=== PATIENT | female | born 1945 | race Caucasian/White ===

== ENCOUNTER 2017-06-27 08:47 | Day surgery (SDC) | payer MEDICARE, OTHER ==
--- NOTE | 2017-06-26 11:09 | HISTORY AND PHYSICAL E ---
History and Physical NAME: JENNIFER LAWRENCE : 1945 AGE: 72Y ADMITTED: 06/27/2017 ROOM: HISTORY OF PRESENT ILLNESS: This is a patient, 72, referred to us by [facility], colon screening. Patient does have lymph node, a large one, in her cervical area. SOCIAL HISTORY: . Does not smoke. Does not drink. She did have colonoscopy years ago. PAST SURGICAL HISTORY: She had a x3, hysterectomy, and fibroid tumor. REVIEW OF SYSTEMS: CARDIAC: Negative. ENDOCRINE: Negative. GASTROINTESTINAL: Constipation, colon screening. ONCOLOGY/HEMATOLOGY: Negative. NEUROPSYCHIATRIC: Anxiety, depression. FAMILY HISTORY: Her father had leukemia. He mom had goiter. PHYSICAL EXAMINATION: VITAL SIGNS: 72, blood pressure is 114/85, weight 130, temp is 98, pulse 70, respirations 18. HEAD, EYES, EARS, NOSE, THROAT: Normal. NECK: Showed some nodes enlargement. LUNGS: Clear. CARDIAC: Normal sinus rhythm. ABDOMEN: No masses. EXTREMITIES: Shows no edema. NEUROLOGIC EXAM: Negative. MEDICATIONS: She takes: 1. Primidone. 2. Tylenol. 3. Miralax. CONCLUSION: Colon screening. Patient does have lymph nodes in her cervical neck area. PLAN: She is to see her primary and request for ultrasound of the thyroid, the neck. Patient needs to have CBC. Awaiting colonoscopy report. Awaiting evaluation of adenopathy in her neck. DICTATING PHYSICIAN: DERREK DARNELL M.D. [id number] PHY#: [id number] ID: [id number] JOB#: [id number] ACCT: [id number] cc:DERREK DARNELL M.D. >
[~2017-06-27 08:47] MED LIST: EPINEPHRINE INJ 1 MG/10 ML DISP.SYRIN ONE; FLUMAZENIL INJ 0.5 MG/5 ML VIAL IV ONE; GLUCAGON,HUMAN RECOMB 1 MG INJ ONE; GLYCOPYRROLATE INJ 0.4 MG/2 ML VIAL ONE; LIDOCAINE 2% JELLY 30 ML TUBE ONE; NALOXONE HCL INJ/PF 0.4 MG/1 ML SDV ONE; ONDANSETRON HCL INJ/PF 4 MG/2 ML SDV ONE
[2017-06-27] MEDS: MIDAZOLAM 2 MG/2 ML INJ ONE ×2 (09:45→09:49)
[2017-06-27] MEDS: FENTANYL CITRATE INJ/PF 100 MCG/2 ML AMPUL ONE ×2 (09:47→09:55)
[2017-06-27 11:12] VITALS: BP 116/70
[2017-06-27 11:27] LABS: ABSOLUTE BASOPHILS # (AUTO) 0.1 10^3/uL (0.0-0.2); ABSOLUTE EOSINOPHILS # (AUTO) 0.2 10^3/uL (0.0-0.6); ABSOLUTE LYMPHOCYTES (AUTO) 1.6 10^3/uL (0.5-4.7); ABSOLUTE MONOCYTES (AUTO) 0.7 10^3/uL (0.1-1.4); ABSOLUTE NEUT (AUTO) 7.1 10^3/uL (1.7-8.2); BASOPHILS % (AUTO) 0.8 % (0-2); EOSINOPHILS % (AUTO) 1.9 % (0-6); HEMATOCRIT 40.7 % (36.0-47.0); HEMOGLOBIN 13.9 g/dL (12.0-15.5); MEAN CORPUSCULAR HEMOGLOBIN 32.7 pg (27.0-33.4); MEAN CORPUSCULAR HGB CONC 34.2 g/dL (32.0-36.0); MEAN CORPUSCULAR VOLUME 96 fl (80-97); MONOCYTES % (AUTO) 7.1 % (3-13); RED BLOOD COUNT 4.25 10^6/uL (3.72-5.28); RED CELL DISTRIBUTION WIDTH 13.8 % (11.5-14.0); SEGMENTED NEUTROPHILS % (AUTO) 73.2 % (42-78); WHITE BLOOD COUNT 9.7 10^3/uL (4.0-10.5)
[2017-06-27 11:47] LABS: ALANINE AMINOTRANSFERASE 24 U/L (9-52); ALBUMIN 4.6 g/dL (3.5-5.0); ALKALINE PHOSPHATASE 79 U/L (38-126); ANION GAP 12 (5-19); ASPARTATE AMINO TRANSFERASE 23 U/L (14-36); BILIRUBIN,DIRECT 0.2 mg/dL (0.0-0.4); BILIRUBIN,TOTAL 0.6 mg/dL (0.2-1.3); BLOOD UREA NITROGEN 9 mg/dL (7-20); CALCIUM 9.5 mg/dL (8.4-10.2); CARBON DIOXIDE 27 mmol/L (22-30); CHLORIDE 104 mmol/L (98-107); CREATININE RESULT 0.68 mg/dL (0.52-1.25); GLUCOSE 69 mg/dL (75-110); POTASSIUM 3.9 mmol/L (3.6-5.0); SODIUM 142.5 mmol/L (137-145); TOTAL PROTEIN 7.6 g/dL (6.3-8.2)
[2017-06-27 12:02] LABS: ERYTHROCYTE SEDIMENTATION RATE 20 mm/hr (0-30)
--- NOTE | 2017-06-27 15:05 | OPERATIVE REPORT E ---
Operative Report NAME: JENNIFER LAWRENCE : 1945 AGE: 72Y DATE OF SURGERY: 06/27/2017 ROOM: PREOPERATIVE DIAGNOSIS: Colon screening. POSTOPERATIVE DIAGNOSES: 1. Sigmoid diverticulosis. 2. Patient did have external hemorrhoids. PROCEDURE: Colonoscopy. SURGEON: DERREK DARNELL M.D. ANESTHESIA: Versed 3 mg and Fentanyl 100 mcg. TISSUE REMOVED OR ALTERED: None. DESCRIPTION OF PROCEDURE: Rectal exam external hemorrhoids. Sigmoid diverticulosis. Descending colon diverticulosis. Transverse colon normal. Ascending colon normal. Cecum normal. The scope withdrawn cecum, ascending, transverse, descending, sigmoid all the way to the rectum. CONCLUSIONS: 1. External hemorrhoids. 2. Sigmoid and descending colon diverticulosis. 3. Colonoscopy showing no polyps, no malignancy. PLAN: Recommend follow-up colonoscopy in 10 years to be done in the OR with Anesthesia standby. Difficult to sedate. DICTATING PHYSICIAN: DERREK DARNELL M.D. [id number] PHY#: [id number] ID: [id number] JOB#: [id number] ACCT: [id number] cc:DERREK DARNELL M.D. >
--- NOTE | 2017-06-28 15:29 | DISCHARGE SUMMARY E ---
Discharge Summary NAME: JENNIFER LAWRENCE : 1945 AGE: 72Y ADMITTED: 06/27/2017 DISCHARGED: 06/27/2017 06/27/2017 PROCEDURE: Colonoscopy. FINAL DIAGNOSES: 1. External hemorrhoids. 2. Sigmoid and descending colon diverticulosis. HISTORY: This 72-year-old female underwent colon screening showing no polyps, no malignancy. The patient was complaining of abdominal pain. She did have x3 and hysterectomy. PLAN: We need to do abdominal ultrasound to rule out ventral or umbilical hernia. We will obtain baseline CBC and chem profile. DICTATING PHYSICIAN: DERREK DARNELL M.D. [id number] PHY#: [id number] ID: [id number] JOB#: [id number] ACCT: [id number] cc:DERREK DARNELL M.D. >
== END 2017-06-27 11:25 | disposition home or self-care (01) ==
LOC: END 08:47
PROVIDERS: ATTEND Specialist
PROC: 0DJD8ZZ Inspection of Lower Intestinal Tract, Via Natural or Artificial Opening Endoscopic (ICD-10-PCS; principal; 2017-06-27 09:00)
DX: Z12.11 Encounter for screening for malignant neoplasm of colon (principal); K64.4 Residual hemorrhoidal skin tags; K57.30 Diverticulosis of large intestine without perforation or abscess without bleeding; F41.9 Anxiety disorder, unspecified; F32.9 Major depressive disorder, single episode, unspecified; Z79.899 Other long term (current) drug therapy
CPT/HCPCS: 36415; 85025; 85652; 80053; G0121; J2250; J0171; J3010; J1610; J2405; 45378; J2310; J3490

== ENCOUNTER 2017-11-11 11:18 | Emergency (ER) | payer MEDICARE, OTHER ==
--- NOTE | 2017-11-11 11:45 | ER Document Report ---
ED Medical Screen (RME) - General Chief Complaint: General Weakness Stated Complaint: NAUSEA, WEAKNESS Time Seen by Provider: 11/11/17 11:34 Notes: 72-year-old female patient comes in complaining of feeling shaky, weak, nausea, disoriented started last night. She also reports that both her hands feel numb, weak, and like "dough". She had been taking Xanax for the past 2 years taking 0.25 mg in the morning and 0.5 mg in the evening. It had been causing itching the entire time. On 10/30/2017 her PCP stopped the Xanax and change her to Zoloft 100 mg. She has only been taking about a 25 mg dose of the Zoloft. On 11/08/2017 she went to an urgent care for an ear infection and was prescribed amoxicillin and prednisone 40 mg a day. Her symptoms she is experiencing today are similar to what she experienced many many years ago when she took prednisone. I informed the patient I suspect that it is a combination of her benzodiazepine withdrawal and the side effect of the prednisone causing her symptoms, but we will check lab work and have her more thoroughly evaluated. I have greeted and performed a rapid initial assessment of this patient. A comprehensive ED assessment and evaluation of the patient, analysis of test results and completion of the medical decision making process will be conducted by additional ED providers. TRAVEL OUTSIDE OF THE [place] IN LAST 30 DAYS: No - Related Data Allergies/Adverse Reactions: ampicillin Allergy (Verified 11/11/17 11:20) Edema Sulfa (Sulfonamide Antibiotics) Allergy (Verified 11/11/17 11:20) Past Medical History - Past Medical History Cardiac Medical History: Reports: Hx Hypercholesterolemia Denies: Hx Coronary Artery Disease, Hx Heart Attack, Hx Hypertension Pulmonary Medical History: Reports: Hx Asthma Denies: Hx Bronchitis, Hx COPD, Hx Pneumonia Neurological Medical History: Denies: Hx Cerebrovascular Accident, Hx Seizures Musculoskeltal Medical History: Reports Hx Arthritis Past Surgical History: Reports: Hx Section - 3, Hx Gynecologic Surgery - fibroid tumors removed, Hx Hysterectomy - Immunizations Hx Diphtheria, Pertussis, Tetanus Vaccination: No Physical Exam - Vital signs Vitals: Temp Pulse Resp BP Pulse Ox 98.8 F 76 20 142/79 H 99 11/11/17 11:27 11/11/17 11:27 11/11/17 11:27 11/11/17 11:27 11/11/17 11:27 Course - Vital Signs Vital signs: Temp Pulse Resp BP Pulse Ox 98.8 F 76 20 142/79 H 99 11/11/17 11:27 11/11/17 11:27 11/11/17 11:27 11/11/17 11:27 11/11/17 11:27
[2017-11-11 12:09] LABS: ABSOLUTE BASOPHILS # (AUTO) 0.1 10^3/uL (0.0-0.2); ABSOLUTE LYMPHOCYTES (AUTO) 1.5 10^3/uL (0.5-4.7); ABSOLUTE MONOCYTES (AUTO) 0.8 10^3/uL (0.1-1.4); BASOPHILS % (AUTO) 0.5 % (0-2); EOSINOPHILS % (AUTO) 0.1 % (0-6); HEMATOCRIT 42.9 % (36.0-47.0); HEMOGLOBIN 14.8 g/dL (12.0-15.5); HGB HCT DIFFERENCE 1.5; LYMPHOCYTES % (AUTO) 14.9 % (13-45); MEAN CORPUSCULAR HEMOGLOBIN 31.6 pg (27.0-33.4); MEAN CORPUSCULAR HGB CONC 34.5 g/dL (32.0-36.0); MEAN CORPUSCULAR VOLUME 92 fl (80-97); MONOCYTES % (AUTO) 7.5 % (3-13); RED BLOOD COUNT 4.69 10^6/uL (3.72-5.28); RED CELL DISTRIBUTION WIDTH 13.3 % (11.5-14.0); WHITE BLOOD COUNT 10.3 10^3/uL (4.0-10.5)
[2017-11-11 12:12] LABS: APPEARANCE,URINE SLIGHTLY-CLOUDY; BILIRUBIN,URINE NEGATIVE (NEGATIVE); GLUCOSE, URINE NEGATIVE (NEGATIVE); KETONES,URINE TRACE mg/dL (NEGATIVE); LEUKOCYTE ESTERASE,URINE NEGATIVE (NEGATIVE); NITRITE,URINE NEGATIVE (NEGATIVE); PROTEIN,URINE NEGATIVE (NEGATIVE); URINE SPECIFIC GRAVITY 1.016
[2017-11-11 12:27] LABS: ALANINE AMINOTRANSFERASE 31 U/L (9-52); ALBUMIN 4.9 g/dL (3.5-5.0); ALKALINE PHOSPHATASE 71 U/L (38-126); ANION GAP 15 (5-19); ASPARTATE AMINO TRANSFERASE 20 U/L (14-36); BILIRUBIN,DIRECT 0.3 mg/dL (0.0-0.4); BILIRUBIN,TOTAL 0.8 mg/dL (0.2-1.3); BLOOD UREA NITROGEN 9 mg/dL (7-20); CALCIUM 10.2 mg/dL (8.4-10.2); CARBON DIOXIDE 25 mmol/L (22-30); CHLORIDE 102 mmol/L (98-107); CREATININE RESULT 0.75 mg/dL (0.52-1.25); GLUCOSE 109 mg/dL (75-110); POTASSIUM 3.5 mmol/L (3.6-5.0); SODIUM 141.9 mmol/L (137-145); TOTAL PROTEIN 7.5 g/dL (6.3-8.2)
[2017-11-11] MEDS ORDERED: NORMAL SALINE 500 ML IV PRN (12:36)
--- NOTE | 2017-11-11 12:36 | ER Document Report ---
ED General - General Chief Complaint: General Weakness Stated Complaint: NAUSEA, WEAKNESS Time Seen by Provider: 11/11/17 11:34 Mode of Arrival: Ambulatory Information source: Patient Notes: 72-year-old female with a history of anxiety who recently started amoxicillin and prednisone for a sinus infection. The patient presents feeling very jittery and shaky and disoriented and nauseous. She states she has had a similar reaction although worse to prednisone many years ago and had forgotten until just today. She had been on the prednisone and the amoxicillin for 2 days. She states that her ears of started to improve. The patient also reports that 2 weeks ago she hit the side of her head after a fall and has had a lot of headaches and tenderness to the right scalp. The patient's [id number] states that they have been concerned because she did not seem to be acting right on a few occasions. There is no nausea, vomiting. TRAVEL OUTSIDE OF THE [place] IN LAST 30 DAYS: No - HPI Onset: Last week Onset/Duration: Gradual Quality of pain: No pain Associated symptoms: denies: Chills, Fever, Shortness of breath Exacerbated by: Denies Relieved by: Denies Similar symptoms previously: No Recently seen / treated by doctor: No - Related Data Allergies/Adverse Reactions: ampicillin Allergy (Verified 11/11/17 11:20) Edema Sulfa (Sulfonamide Antibiotics) Allergy (Verified 11/11/17 11:20) prednisone Adverse Reaction (Verified 11/11/17 12:37) Home Medications: Current Home Medications Sertraline HCl [Zoloft 50 mg Tablet] 100 mg PO DAILY 11/11/17 [History] Past Medical History - General Information source: Patient - Social History Smoking Status: Never Smoker Cigarette use (# per day): No Chew tobacco use (# tins/day): No Frequency of alcohol use: None Drug Abuse: None Lives with: Family Family History: Reviewed & Not Pertinent Patient has suicidal ideation: No Patient has homicidal ideation: No - Past Medical History Cardiac Medical History: Reports: Hx Hypercholesterolemia Denies: Hx Coronary Artery Disease, Hx Heart Attack, Hx Hypertension Pulmonary Medical History: Reports: Hx Asthma Denies: Hx Bronchitis, Hx COPD, Hx Pneumonia Neurological Medical History: Denies: Hx Cerebrovascular Accident, Hx Seizures Renal/ Medical History: Denies: Hx Peritoneal Dialysis Musculoskeltal Medical History: Reports Hx Arthritis Past Surgical History: Reports: Hx Section - 3, Hx Gynecologic Surgery - fibroid tumors removed, Hx Hysterectomy - Immunizations Hx Diphtheria, Pertussis, Tetanus Vaccination: No Hx Pneumococcal Vaccination: 11/26/15 Review of Systems - Review of Systems Constitutional: denies: Chills, Fever EENT: See HPI Cardiovascular: No symptoms reported Respiratory: No symptoms reported Gastrointestinal: No symptoms reported Genitourinary: No symptoms reported Female Genitourinary: No symptoms reported Musculoskeletal: No symptoms reported Skin: No symptoms reported Hematologic/Lymphatic: No symptoms reported Neurological/Psychological: See HPI Physical Exam - Vital signs Vitals: Temp Pulse Resp BP Pulse Ox 98.8 F 76 20 142/79 H 99 11/11/17 11:27 11/11/17 11:27 11/11/17 11:27 11/11/17 11:27 11/11/17 11:27 Notes: Physical exam: GENERAL: 72-year-old female, alert and oriented 3, no acute distress HEAD: Atraumatic, normocephalic. EYES: Pupils equal round and reactive to light, extraocular movements intact, sclera anicteric, conjunctiva are normal. ENT: TMs normal, nares patent, oropharynx clear without exudates. Moist mucous membranes. NECK: Normal range of motion, supple without obvious mass or JVD. LUNGS: Breath sounds clear to auscultation bilaterally and equal. No wheezes rales or rhonchi. HEART: Regular rate and rhythm without murmurs, rubs or gallops. ABDOMEN: Soft, normoactive bowel sounds. No tenderness to palpation. No guarding, no rebound. No masses appreciated. EXTREMITIES: Normal range of motion, no pitting or edema. No clubbing or cyanosis. NEUROLOGICAL: Cranial nerves II through XII grossly intact. Normal speech, moving all extremities. PSYCH: Normal mood, normal affect. SKIN: Warm, Dry, normal turgor, no rashes or lesions noted. Course - Vital Signs Vital signs: Temp Pulse Resp BP Pulse Ox 98.6 F 80 18 136/86 H 99 11/11/17 18:11 11/11/17 18:11 11/11/17 18:11 11/11/17 18:11 11/11/17 18:11 - Laboratory Result Diagrams: 11/11/17 11:48 11/11/17 11:48 Laboratory results interpreted by me: 12/17/17 12/17/17 12/17/17 11:48 11:48 11:48 Plt Count 467 H Potassium 3.5 L Urine Ketones TRACE H Urine Urobilinogen 4.0 H - Diagnostic Test Radiology reviewed: Image reviewed, Reports reviewed - CT of the head shows old small vessel disease on the left. Discharge - Discharge Clinical Impression: ADVERSE REACTION MEDICINE, Right scalp contusion Condition: Stable Disposition: HOME, SELF-CARE Additional Instructions: As we discussed, your labs look good. The CT of the head showed no skull fractures or brain contusion on the right side where you pain is been. The CT is a sensitive test and it did show some small vessel ischemic disease which is a common finding. This does not appear to be an acute (recent) finding. I would continue with the aspirin daily. I will follow-up with your primary care doctor and bring a copy of the CT with you. Recommendations: Stop the prednisone as discussed. Continue with the amoxicillin. Return to the emergency room for any worsening symptoms: It may take a full day or 2 before the prednisone is fully out of your system. You can take Zofran for nausea Prescriptions: Ondansetron HCl [Zofran 4 mg Tablet] 1 - 2 tab PO Q4H PRN #10 tablet PRN Reason: Referrals: NEIL DRISCOLL MD [Primary Care Provider] - Follow up as needed
[2017-11-11] MEDS ORDERED: ONDANSETRON HCL INJ/PF 4 MG/2 ML SDV IV ONE (13:11)
--- NOTE | 2017-11-11 15:45 | RADIOLOGY REPORT (SQ) ---
EXAM DESCRIPTION: CT HEAD WITHOUT COMPLETED DATE/TIME: 11/11/2017 3:14 pm REASON FOR STUDY: right head pain s/p trauma COMPARISON: None. TECHNIQUE: Axial images acquired through the brain without intravenous contrast. Images reviewed wi th bone, brain and subdural windows. Images stored on PACS. All CT scanners at this facility use dose modulation, iterative reconstruction, and/or weight based d osing when appropriate to reduce radiation dose to as low as reasonably achievable (ALARA). [facility]: Dose Right [facility]: CareDose [facility]: Dose Right [facility]: Teradose 4D [facility]: [employer] RADIATION DOSE: CT Rad equipment meets quality standard of care and radiation dose reduction techniq ues were employed. CTDIvol: 64.6 mGy. DLP: 1163 mGy-cm. mGy. LIMITATIONS: None. FINDINGS: VENTRICLES: Normal size and contour. CEREBRUM: Spotty low attenuation in the left frontal deep periventricular white matter, likely chroni c small vessel disease. No CT evidence of acute intracranial hemorrhage, acute large territory ischem ic change, mass effect, or midline shift. CEREBELLUM: No masses. No hemorrhage. No alteration of density. No evidence for acute infarction. EXTRAAXIAL SPACES: No fluid collections. No masses. ORBITS AND GLOBE: No intra- or extraconal masses. Normal contour of globe without masses. CALVARIUM: No fracture. PARANASAL SINUSES: No fluid or mucosal thickening. SOFT TISSUES: No mass or hematoma. OTHER: No other significant finding. IMPRESSION: Left frontal small vessel ischemic change. No acute intracranial changes. No skull fracture. EVIDENCE OF ACUTE STROKE: NO. COMMENT: Quality ID # [id number]: Final reports with documentation of one or more dose reduction techniques (e.g., Automated exposure control, adjustment of the mA and/or kV according to patient size, use of iterative reconstruction technique) TECHNICAL DOCUMENTATION: JOB ID: [id number] [employer]- All Rights Reserved
[2017-11-11] MEDS ORDERED: ONDANSETRON ODT 4 MG TAB (6 TAB/DSPK) PO PRN (17:20)
[2017-11-11 18:12] VITALS: BP 136/86
== END 2017-11-11 18:00 | disposition home or self-care (01) ==
LOC: ER 11:18
DX: S00.03XA Contusion of scalp, initial encounter (principal); R53.1 Weakness; R11.0 Nausea; F41.9 Anxiety disorder, unspecified; Z79.899 Other long term (current) drug therapy; W19.XXXA Unspecified fall, initial encounter
CPT/HCPCS: 99285; 96374; 36415; 85025; 80053; 81001; 70450; J2405; J7040; A9270

== ENCOUNTER 2018-03-24 22:41 | Emergency (ER) | payer MEDICARE, OTHER ==
[2018-03-25 01:15] LABS: ANION GAP 14 (5-19); BLOOD UREA NITROGEN 14 mg/dL (7-20); C-REACTIVE PROTEIN 11.9 mg/L (<10.0); CALCIUM 9.6 mg/dL (8.4-10.2); CARBON DIOXIDE 25 mmol/L (22-30); CHLORIDE 107 mmol/L (98-107); GLUCOSE 104 mg/dL (75-110); POTASSIUM 4.3 mmol/L (3.6-5.0); SODIUM 145.8 mmol/L (137-145)
--- NOTE | 2018-03-25 01:20 | RADIOLOGY REPORT (SQ) ---
EXAM DESCRIPTION: CT HEAD WITHOUT CLINICAL HISTORY: 72 years Female, headache COMPARISON: None. TECHNIQUE: No contrast. Coronal and sagittal reformat. This exam was performed according to our departmental dose-optimization program, which includes automated exposure control, adjustment of the mA and/or kV according to patient size and/or use of iterative reconstruction technique. FINDINGS: No hemorrhage or infarct. No mass, mass effect, or midline shift. Mild white matter microangiopathy. Atherosclerosis. Brain and extra-axial structures appear otherwise intact. IMPRESSION: No acute findings.
--- NOTE | 2018-03-25 01:36 | ER Document Report ---
ED General - General Chief Complaint: Headache Stated Complaint: HEADACHE Time Seen by Provider: 03/24/18 23:57 Notes: Patient is a 72-year-old female with medical history as recorded who presents with 6 months of intermittent global and migratory headaches. She comes at the behest of her family today as a note that intermittently her headaches are so severe that she lays on the couch and cries. She has discussed these headaches with her primary doctor but he "blew them off" and has not referred her to neurology or provide any additional management of these headaches. Nothing seems to trigger the headaches and they do often resolve spontaneously. Patient states that they seem to originate from several areas of veins on her right forehead and left scalp. She denies any associated visual loss, weakness , numbness, vomiting or syncope. No head trauma. She describes the pain as a severe, stabbing, throbbing pain when it is present. Symptoms are overall unchanged tonight but states that she came as her family was tired of seeing her in some much pain. Family also notes that for the past several years she has had a swollen lymph node of her left neck that seems to be getting bigger and they are concerned about this. TRAVEL OUTSIDE OF THE [place] IN LAST 30 DAYS: No - Related Data Allergies/Adverse Reactions: ampicillin Allergy (Verified 11/11/17 11:20) Edema Sulfa (Sulfonamide Antibiotics) Allergy (Verified 11/11/17 11:20) prednisone Adverse Reaction (Verified 11/11/17 12:37) Past Medical History - General Information source: Patient - Social History Smoking Status: Never Smoker Frequency of alcohol use: None Drug Abuse: None Lives with: Family Family History: Reviewed & Not Pertinent - Past Medical History Cardiac Medical History: Reports: Hx Hypercholesterolemia Denies: Hx Coronary Artery Disease, Hx Heart Attack, Hx Hypertension Pulmonary Medical History: Reports: Hx Asthma Denies: Hx Bronchitis, Hx COPD, Hx Pneumonia Neurological Medical History: Denies: Hx Cerebrovascular Accident, Hx Seizures Renal/ Medical History: Denies: Hx Peritoneal Dialysis Musculoskeltal Medical History: Reports Hx Arthritis Past Surgical History: Reports: Hx Section - 3, Hx Gynecologic Surgery - fibroid tumors removed, Hx Hysterectomy - Immunizations Hx Diphtheria, Pertussis, Tetanus Vaccination: No Hx Pneumococcal Vaccination: 11/26/15 Review of Systems - Review of Systems Notes: Constitutional: Negative for fever. HENT: Negative for sore throat. Eyes: Negative for visual changes. Cardiovascular: Negative for chest pain. Respiratory: Negative for shortness of breath. Gastrointestinal: Negative for abdominal pain, vomiting or diarrhea. Genitourinary: Negative for dysuria. Musculoskeletal: Negative for back pain. Skin: Negative for rash. Neurological: Positive for headaches 10 point ROS negative except as marked above and in HPI. Physical Exam - Vital signs Interpretation: Normal Notes: PHYSICAL EXAMINATION: GENERAL: Well-appearing, well-nourished and in no acute distress. HEAD: Atraumatic, normocephalic. EYES: Pupils equal round and reactive to light, extraocular movements intact, sclera anicteric, conjunctiva are normal. ENT: nares patent, oropharynx clear without exudates. Moist mucous membranes. NECK: Normal range of motion, there is a large, firm, nonmobile, nontender left- sided anterior cervical lymph node LUNGS: Breath sounds clear to auscultation bilaterally and equal. No wheezes rales or rhonchi. HEART: Regular rate and rhythm without murmurs ABDOMEN: Soft, nontender, normoactive bowel sounds. No guarding, no rebound. No masses appreciated. EXTREMITIES: Normal range of motion, no pitting or edema. No cyanosis. NEUROLOGICAL: Face symmetric. Tongue protrudes midline. Extraocular motions intact. Pupils are 2 mm and equally reactive. Normal speech, normal gait. 5 out of 5 strength in both the distal and proximal upper and lower extremities bilaterally. Sensation is grossly intact throughout. Finger to nose testing normal. Pronator drift normal. PSYCH: Normal mood, normal affect. SKIN: Warm, Dry, normal turgor, multiple superficial thrombosed veins along the right forehead and left temporal scalp Course - Re-evaluation Re-evalutation: 03/25/18 01:29 Presentation of a chronic, recurrent diffuse headache for the past 6 months but is overall unchanged today. Headache was not maximal in onset, patient has no focal neurologic deficits, no nuchal rigidity, vital signs within normal limits , no papilledema, and patient is overall well in appearance. Based on clinical history and examination I do not suspect an acute subarachnoid hemorrhage, dural venous sinus thrombosis, acute meningitis, or intercranial mass. Patient has multiple superficial thrombosed veins over her right forehead and left temporal scalp which may be triggering her headaches. Low clinical suspicion for temporal arteritis given clinical history and ESR and CRP are normal. CT the head is unremarkable which was obtained given her advanced age. Patient also has a large left anterior cervical lymph node that is large, firm and nonmobile. This is apparently been present for the past several years and has never been biopsied. I have strongly encouraged the patient to please discuss with her primary care doctor about having this area biopsied. We also discussed considering neurology referral for her recurrent headaches. I have encouraged her to place hot compresses on the areas of superficial thrombosed veins and continue take a full dose of aspirin daily to try to open these areas. At this time will discharge with return precautions and follow-up recommendations. Verbal discharge instructions given a the bedside and opportunity for questions given. Medication warnings reviewed. Patient is in agreement with this plan and has verbalized understanding of return precautions and the need for primary care follow-up in the next 24-72 hours. - Laboratory Result Diagrams: 03/25/18 00:30 Laboratory results interpreted by me: 03/25/18 00:30 Sodium 145.8 H C-Reactive Protein 11.9 H - Diagnostic Test Radiology reviewed: Image reviewed, Reports reviewed Radiology results interpreted by me: 03/25/18 01:31 CT head: No acute intracranial bleed or mass Discharge - Discharge Clinical Impression: Superficial vein thrombosis, Recurrent headache, Enlarged lymph node in neck Condition: Good Disposition: HOME, SELF-CARE Additional Instructions: Please discuss with your primary care doctor about having the lymph node in your neck biopsied. You have multiple veins in your face and scalp that are clotted off and may be the cause of your recurrent headaches. Your labs and CT scan are reassuring today. You should consider following up with neurology given your recurrent headaches. Return if you have persistent vomiting, weakness, numbness, fever, confusion, or any other symptoms that are worrisome to you.
[2018-03-25 01:59] VITALS: BP 128/70
== END 2018-03-25 01:55 | disposition home or self-care (01) ==
LOC: ER 22:41
DX: I82.890 Acute embolism and thrombosis of other specified veins (principal); R59.0 Localized enlarged lymph nodes; R51 Headache; J45.909 Unspecified asthma, uncomplicated
CPT/HCPCS: 36415; 70450; 80048; 85652; 86140; 99284

== ENCOUNTER → 2018-04-02 | Outpatient (CLI) | payer MEDICARE, OTHER ==
--- NOTE | 2018-04-02 13:42 | RADIOLOGY REPORT (SQ) ---
EXAM DESCRIPTION: CT SOFT TISSUE NECK WITHOUT COMPLETED DATE/TIME: 04/02/2018 1:15 pm REASON FOR STUDY: R22.1 LOCALIZED SWELLING, MASS AND LUMP, NECK R22.1 LOCALIZED SWELLING, MASS AND LUMP, NECK COMPARISON: None. TECHNIQUE: Noncontrast scanning from skull base through lung apices with review of bone, soft tissue and lung windows. Reconstructed coronal and sagittal MPR images reviewed. All images stored on PAC S. All CT scanners at this facility use dose modulation, iterative reconstruction, and/or weight based d osing when appropriate to reduce radiation dose to as low as reasonably achievable (ALARA). [facility]: Dose Right [facility]: CareDose [facility]: Dose Right [facility]: Teradose 4D [facility]: [facility] RADIATION DOSE: mGy. LIMITATIONS: None. FINDINGS: SKULL BASE: Intact. MAJOR SALIVARY GLANDS: No solid or cystic masses. No inflammatory changes. LYMPHADENOPATHY: No adenopathy. MUCOSAL MASSES OR ASYMMETRY: No mucosal masses or asymmetry. LARYNX/CORDS: No abnormal findings. LUNG APICES: Clear. BONES: Intact. THYROID: Normal size. No masses. PARANASAL SINUSES: Clear. OTHER: No other significant finding. IMPRESSION: NO SIGNIFICANT FINDING IN THE SOFT TISSUES OF THE NECK. TECHNICAL DOCUMENTATION: JOB ID: [id number] Quality ID # [id number]: Final reports with documentation of one or more dose reduction techniques (e.g., Au tomated exposure control, adjustment of the mA and/or kV according to patient size, use of iterative reconstruction technique) 2010 [employer] All Rights Reserved Reading location - IP/workstation name: [email or web address] [email or web address] [id number] BEDS AT THE [facility]
== END ==
LOC: RAD 13:05
PROVIDERS: ATTEND Internal Medicine
DX: R22.1 Localized swelling, mass and lump, neck (principal)
CPT/HCPCS: 70490

== ENCOUNTER 2018-05-28 12:52 | Emergency (ER) | payer OTHER, MEDICARE ==
[2018-05-28] MEDS ORDERED: FENTANYL CITRATE INJ/PF 100 MCG/2 ML AMPUL IV ONE (13:14)
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
[2018-05-28 14:00] LABS: ABSOLUTE BASOPHILS # (AUTO) 0.1 10^3/uL (0.0-0.2); ABSOLUTE EOSINOPHILS # (AUTO) 0.2 10^3/uL (0.0-0.6); ABSOLUTE LYMPHOCYTES (AUTO) 2.4 10^3/uL (0.5-4.7); ABSOLUTE MONOCYTES (AUTO) 0.7 10^3/uL (0.1-1.4); ABSOLUTE NEUT (AUTO) 5.7 10^3/uL (1.7-8.2); BASOPHILS % (AUTO) 1.3 % (0-2); EOSINOPHILS % (AUTO) 1.9 % (0-6); HEMATOCRIT 38.9 % (36.0-47.0); HEMOGLOBIN 13.2 g/dL (12.0-15.5); LYMPHOCYTES % (AUTO) 26.2 % (13-45); MEAN CORPUSCULAR HEMOGLOBIN 31.5 pg (27.0-33.4); MEAN CORPUSCULAR VOLUME 93 fl (80-97); MONOCYTES % (AUTO) 7.4 % (3-13); PLATELET COUNT 492 10^3/uL (150-450); RED CELL DISTRIBUTION WIDTH 13.6 % (11.5-14.0); SEGMENTED NEUTROPHILS % (AUTO) 63.2 % (42-78); TOTAL CELLS COUNTED % (AUTO) 100 %
[2018-05-28 14:18] LABS: ALANINE AMINOTRANSFERASE 23 U/L (9-52); ALBUMIN 4.1 g/dL (3.5-5.0); ALKALINE PHOSPHATASE 114 U/L (38-126); ANION GAP 10 (5-19); ASPARTATE AMINO TRANSFERASE 40 U/L (14-36); BILIRUBIN,DIRECT 0.3 mg/dL (0.0-0.4); BILIRUBIN,TOTAL 0.5 mg/dL (0.2-1.3); BLOOD UREA NITROGEN 8 mg/dL (7-20); CALCIUM 9.5 mg/dL (8.4-10.2); CARBON DIOXIDE 28 mmol/L (22-30); CHLORIDE 107 mmol/L (98-107); GLUCOSE 86 mg/dL (75-110); POTASSIUM 3.8 mmol/L (3.6-5.0); SODIUM 145.1 mmol/L (137-145); TOTAL PROTEIN 7.1 g/dL (6.3-8.2)
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
[2018-05-28 16:21] VITALS: BP 136/72
--- NOTE | 2018-05-28 18:54 | EKG REPORT ---
SEVERITY:- NORMAL ECG - SINUS RHYTHM : Confirmed by: Fidel Hathc MD 28-May-2018 18:54:11
== END 2018-05-28 16:21 | disposition home or self-care (01) ==
LOC: ER 12:52
DX: S16.1XXA Strain of muscle, fascia and tendon at neck level, initial encounter (principal); R20.0 Anesthesia of skin; R10.33 Periumbilical pain; M25.562 Pain in left knee; M25.561 Pain in right knee; V89.2XXA Person injured in unspecified motor-vehicle accident, traffic, initial encounter; E78.00 Pure hypercholesterolemia, unspecified; Z88.2 Allergy status to sulfonamides; Z88.0 Allergy status to penicillin; Z90.710 Acquired absence of both cervix and uterus
CPT/HCPCS: 93005; 99284; 36415; 85025; 80053; 73564 ×2; 73030; 71260; 72125; 74177; 93010; J3010

== ENCOUNTER → 2018-08-26 | Outpatient (CLI) | payer MEDICARE, OTHER ==
--- NOTE | 2018-08-27 12:39 | RADIOLOGY REPORT (SQ) ---
EXAM DESCRIPTION: MRI CERVICAL SPINE WITHOUT COMPLETED DATE/TIME: 08/26/2018 6:53 pm REASON FOR STUDY: M54.12 RADICULOPATHY, CERVICAL REGION M54.12 RADICULOPATHY, CERVICAL REGION COMPARISON: CT cervical spine 05/28/2018 TECHNIQUE: Sagittal and Axial imaging includes T1, T2, STIR and gradient echo sequences. LIMITATIONS: None. FINDINGS: ALIGNMENT: Normal. VERTEBRAE: Intact. BONE MARROW: Normal. No marrow replacement or reactive changes. DISCS: Diffuse decreased T2 weighted intervertebral disc signal. HARDWARE: None in the spine. CORD AND BASE OF BRAIN: Normal in size and signal intensity. SOFT TISSUES: No soft tissue masses. C1-C2: No significant spinal stenosis. C2-C3: Very mild right foraminal narrowing at C2-3 from asymmetric right-sided facet arthropathy. No central or left foraminal narrowing. C3-C4: Minimal posterior disc bulging. Moderate bilateral foraminal narrowing from facet and uncover tebral hypertrophy. No central stenosis. C4-C5: No significant spinal stenosis or exit foraminal stenosis. Moderate right facet arthropathy a t C4-5. C5-C6: Mild posterior disc bulging without central or foraminal stenosis. Bilateral facet arthropath y left greater than right C6-C7: Minimal posterior disc bulging. No central or foraminal stenosis. C7-T1: No significant spinal stenosis or exit foraminal stenosis. UPPER THORACIC: Incompletely imaged. No significant spinal stenosis or exit foraminal stenosis. OTHER: No other significant finding. IMPRESSION: Cervical facet arthropathy. TECHNICAL DOCUMENTATION: JOB ID: [id number] [employer]- All Rights Reserved Reading location - IP/workstation name: [email or web address]
== END ==
LOC: RAD 18:43
PROVIDERS: ATTEND Internal Medicine
DX: M54.12 Radiculopathy, cervical region (principal)
CPT/HCPCS: 72141

== ENCOUNTER → 2019-01-09 | Outpatient (CLI) | payer MEDICARE, OTHER ==
--- NOTE | 2019-01-09 14:16 | WOMENS IMAGING REPORT ---
EXAM DESCRIPTION: 3D SCREENING MAMMO BILAT COMPLETED DATE/TIME: 01/09/2019 11:43 am REASON FOR STUDY: ROUTINE SCREENING MAMMOGRAM Z12.31 Z12.31 ENCNTR SCREEN MAMMOGRAM FOR MALIGNANT N EOPLASM OF PETROS COMPARISON: Multiple since 2012 TECHNIQUE: Standard craniocaudal and mediolateral oblique views of each breast recorded using digita l acquisition and breast tomosynthesis. LIMITATIONS: None. FINDINGS: Findings present which are benign by mammographic criteria. No suspicious masses, calcifi cations or architectural distortion. Pertinent benign findings: Benign bilateral breast parenchymal and vascular calcifications. Right br east upper inner quadrant intramammary lymph node. Read with the assistance of CAD. .[facility] - R2 Cenova Version 1.3 .[facility] - R2 Cenova Version 2.1 .[facility] - R2 Cenova Version 2.4 .[facility] [place] - R2 Cenova Version 2.4 .[facility] - R2 Tugboat Engineer Version 9.2 Benign mammographic findings may include one or more of the following: Smooth masses, popcorn/rim/co arse calcifications, asymmetries, post-procedure changes, and lesions with long-standing stability. IMPRESSION: BENIGN MAMMOGRAPHIC FINDINGS. BIRADS 2 BREAST DENSITY: c. The breasts are heterogeneously dense, which may obscure small masses. BIRAD: 2 BENIGN FINDING(S) RECOMMENDATION: RECOMMENDATION: ROUTINE SCREENING COMMENT: The patient has been notified of the results by letter per SA requirements. Additional no tification policies are in place for contacting patient with suspicious or incomplete findings. Quality ID #225: The [employer] recommends an annual screening mammogram for women aged 40 years or over. This facility utilizes a reminder system to ensure that all patients receive reminder letters, and/or direct phone calls for appointments. This includes reminders for routine scr eening mammograms, diagnostic mammograms, or other Breast Imaging Interventions when appropriate. Th is patient will be placed in the appropriate reminder system. The [employer] (ACR) has developed recommendations for screening MRI of the breast s in certain patient populations, to be used in conjunction with mammography. Breast MRI surveillanc e may be appropriate for women with more than 20% lifetime risk of developing breast cancer as deter mined by genetic testing, significant family history of the disease, or history of mantle radiation f or Hodgkins Disease. ACR Practice Guidelines 2008. DBT Technology DBT is a type of tomographic mammography. With conventional mammography, overlapping breast tissue ma y make lesions difficult to detect, even with good compression. DBT uses an x-ray tube that rotates a round the breast, taking images at different angles. These images are then combined to create thin sl ices of the breast that the radiologist can view as a 3D reconstruction. The Hologic unit can perform full-field digital mammograms (2D imaging); or DBT (3D imaging); or both, in a combination mode that quickly performs both the mammogram and the tomosynthesis scan while the breast is still compressed. PQRS 6045F: Fluoroscopic imaging is not utilized for breast tomosynthesis. TECHNICAL DOCUMENTATION: FINDING NUMBER: (1) ASSESSMENT: (1) JOB ID: [id number] [employer]- All Rights Reserved Reading location - IP/workstation name: [email or web address]
== END ==
LOC: WI 11:19
PROVIDERS: ATTEND Internal Medicine
DX: Z12.31 Encounter for screening mammogram for malignant neoplasm of breast (principal)
CPT/HCPCS: 77063; 77067

== ENCOUNTER 2019-05-02 17:04 | Emergency (ER) | payer MEDICARE, OTHER ==
[2019-05-02] MEDS ORDERED: ASPIRIN 81 MG TABLET, CHEWABLE PO ONE (18:19)
--- NOTE | 2019-05-02 18:22 | ER Document Report ---
ED Medical Screen (RME) - General Chief Complaint: Chest Pain Stated Complaint: CHEST PAIN Time Seen by Provider: 05/02/19 18:19 Primary Care Provider: NEIL DRISCOLL MD [Primary Care Provider] - Follow up as needed Notes: Patient is a 74-year-old female presents to the emergency department for generalized chest pain and respiratory distress. States as though she feels like she "cannot take a deep breath." Patient denies any history of congestive heart failure, COPD, asthma. GENERAL: Alert, interacts well. No acute distress. LUNGS: Clear to auscultation bilaterally, no wheezes, rales, or rhonchi. No res piratory distress. HEART: Regular rate and rhythm. No murmur I have greeted and performed a rapid initial assessment of this patient. A comprehensive ED assessment and evaluation of the patient, analysis of test results and completion of the medical decision making process will be conducted by additional ED providers. This medical record was dictated with voice recognizing software. There may be grammatical, syntax errors that are unintended. TRAVEL OUTSIDE OF THE [place] IN LAST 30 DAYS: No - Related Data Allergies/Adverse Reactions: ampicillin Allergy (Verified 11/11/17 11:20) Edema Sulfa (Sulfonamide Antibiotics) Allergy (Verified 11/11/17 11:20) prednisone Adverse Reaction (Verified 11/11/17 12:37) Past Medical History - Past Medical History Cardiac Medical History: Reports: Hx Hypercholesterolemia Denies: Hx Coronary Artery Disease, Hx Heart Attack, Hx Hypertension Pulmonary Medical History: Reports: Hx Asthma Denies: Hx Bronchitis, Hx COPD, Hx Pneumonia Neurological Medical History: Denies: Hx Cerebrovascular Accident, Hx Seizures Renal/ Medical History: Denies: Hx Peritoneal Dialysis Musculoskeltal Medical History: Reports Hx Arthritis Past Surgical History: Reports: Hx Section - 3, Hx Gynecologic Surgery - fibroid tumors removed, Hx Hysterectomy - Immunizations Hx Diphtheria, Pertussis, Tetanus Vaccination: No Physical Exam - Vital signs Vitals: Temp Pulse Resp BP Pulse Ox 98.2 F 88 16 127/58 H 95 05/02/19 17:23 05/02/19 17:23 05/02/19 17:23 05/02/19 17:23 05/02/19 17:23 Course - Vital Signs Vital signs: Temp Pulse Resp BP Pulse Ox 98.2 F 88 16 127/58 H 95 05/02/19 17:23 05/02/19 17:23 05/02/19 17:23 05/02/19 17:23 05/02/19 17:23 Doctor's Discharge - Discharge Referrals: NEIL DRISCOLL MD [Primary Care Provider] - Follow up as needed
[2019-05-02 19:00] LABS: ABSOLUTE BASOPHILS # (AUTO) 0.1 10^3/uL (0.0-0.2); ABSOLUTE LYMPHOCYTES (AUTO) 1.6 10^3/uL (0.5-4.7); ABSOLUTE MONOCYTES (AUTO) 0.9 10^3/uL (0.1-1.4); ABSOLUTE NEUT (AUTO) 11.1 10^3/uL (1.7-8.2); BASOPHILS % (AUTO) 0.7 % (0-2); EOSINOPHILS % (AUTO) 0.1 % (0-6); HEMATOCRIT 41.7 % (36.0-47.0); HEMOGLOBIN 13.9 g/dL (12.0-15.5); LYMPHOCYTES % (AUTO) 11.8 % (13-45); MEAN CORPUSCULAR HEMOGLOBIN 29.8 pg (27.0-33.4); MEAN CORPUSCULAR HGB CONC 33.2 g/dL (32.0-36.0); MEAN CORPUSCULAR VOLUME 90 fl (80-97); MONOCYTES % (AUTO) 6.8 % (3-13); PLATELET COUNT 443 10^3/uL (150-450); RED BLOOD COUNT 4.66 10^6/uL (3.72-5.28); RED CELL DISTRIBUTION WIDTH 14.9 % (11.5-14.0); SEGMENTED NEUTROPHILS % (AUTO) 80.6 % (42-78); TOTAL CELLS COUNTED % (AUTO) 100 %; WHITE BLOOD COUNT 13.8 10^3/uL (4.0-10.5)
--- NOTE | 2019-05-02 19:00 | RADIOLOGY REPORT (SQ) ---
EXAM DESCRIPTION: CHEST SINGLE VIEW COMPLETED DATE/TIME: 05/02/2019 6:44 pm REASON FOR STUDY: CP COMPARISON: None. NUMBER OF VIEWS: One view. TECHNIQUE: Single frontal radiographic view of the chest acquired. LIMITATIONS: None. FINDINGS: LUNGS AND PLEURA: No opacities, masses or pneumothorax. No pleural effusion. MEDIASTINUM AND HILAR STRUCTURES: No masses. Contour normal. HEART AND VASCULAR STRUCTURES: Heart normal in size. Normal vasculature. BONES: No acute findings. HARDWARE: None in the chest. OTHER: No other significant finding. IMPRESSION: NO SIGNIFICANT RADIOGRAPHIC FINDING IN THE CHEST. TECHNICAL DOCUMENTATION: JOB ID: [id number] [employer]- All Rights Reserved Reading location - IP/workstation name: [email or web address]
[2019-05-02 19:20] LABS: ALANINE AMINOTRANSFERASE 17 U/L (9-52); ALBUMIN 4.9 g/dL (3.5-5.0); ALKALINE PHOSPHATASE 105 U/L (38-126); ANION GAP 12 (5-19); ASPARTATE AMINO TRANSFERASE 23 U/L (14-36); BILIRUBIN,DIRECT 0.2 mg/dL (0.0-0.4); BILIRUBIN,TOTAL 0.6 mg/dL (0.2-1.3); BLOOD UREA NITROGEN 11 mg/dL (7-20); CALCIUM 10.4 mg/dL (8.4-10.2); CARBON DIOXIDE 29 mmol/L (22-30); CHLORIDE 100 mmol/L (98-107); CREATINE KINASE 38 U/L (30-135); GLUCOSE 101 mg/dL (75-110); POTASSIUM 4.3 mmol/L (3.6-5.0); SODIUM 141.2 mmol/L (137-145); TOTAL PROTEIN 7.8 g/dL (6.3-8.2)
[2019-05-02 19:32] LABS: CREATINE KINASE MB 0.37 ng/mL (<4.55); NT PRO BNP 413 pg/mL (5-900)
[2019-05-02 19:35] LABS: TROPONIN I < 0.012 ng/mL
[2019-05-02] MEDS ORDERED: NORMAL SALINE 1000 ML 1,000 ML IV ONE (21:21)
--- NOTE | 2019-05-02 21:24 | ER Document Report ---
ED General - General Chief Complaint: Chest Pain Stated Complaint: CHEST PAIN Time Seen by Provider: 05/02/19 18:19 Primary Care Provider: NEIL DRISCOLL MD [ACTIVE STAFF] - 05/05/19 Mode of Arrival: Ambulatory Information source: Patient Notes: 74-year-old female with a history of asthma, radiculopathy, anxiety who presents to the emergency room with sharp chest pain associated with dizziness, weakness and near syncope. Note: Patient does describe this pain as sharp and stabbing. She denies any exertional chest tightness/chest pain. He denies any exertional shortness of breath. She denies any calf tenderness or calf swelling or calf pain. She denies any fever peer TRAVEL OUTSIDE OF THE [place] IN LAST 30 DAYS: No - HPI Onset: This morning Onset/Duration: Gradual Quality of pain: Sharp Associated symptoms: Chest pain. denies: Fever, Shortness of breath Exacerbated by: Denies Relieved by: Denies Similar symptoms previously: No Recently seen / treated by doctor: No - Related Data Allergies/Adverse Reactions: ampicillin Allergy (Verified 11/11/17 11:20) Edema Sulfa (Sulfonamide Antibiotics) Allergy (Verified 11/11/17 11:20) prednisone Adverse Reaction (Verified 11/11/17 12:37) Past Medical History - General Information source: Patient - Social History Smoking Status: Never Smoker Cigarette use (# per day): No Chew tobacco use (# tins/day): No Frequency of alcohol use: None Drug Abuse: None Lives with: Family Family History: Reviewed & Not Pertinent Patient has suicidal ideation: No Patient has homicidal ideation: No - Past Medical History Cardiac Medical History: Reports: Hx Hypercholesterolemia Denies: Hx Coronary Artery Disease, Hx Heart Attack, Hx Hypertension Pulmonary Medical History: Reports: Hx Asthma Denies: Hx Bronchitis, Hx COPD, Hx Pneumonia Neurological Medical History: Denies: Hx Cerebrovascular Accident, Hx Seizures Renal/ Medical History: Denies: Hx Peritoneal Dialysis Musculoskeletal Medical History: Reports Hx Arthritis Past Surgical History: Reports: Hx Section - 3, Hx Gynecologic Surgery - fibroid tumors removed, Hx Hysterectomy - Immunizations Hx Diphtheria, Pertussis, Tetanus Vaccination: No Hx Pneumococcal Vaccination: 11/26/15 Review of Systems - Review of Systems Constitutional: denies: Chills, Fever EENT: No symptoms reported Cardiovascular: See HPI Respiratory: No symptoms reported Gastrointestinal: No symptoms reported Genitourinary: No symptoms reported Female Genitourinary: No symptoms reported Musculoskeletal: See HPI Skin: No symptoms reported Hematologic/Lymphatic: No symptoms reported Neurological/Psychological: See HPI Physical Exam - Vital signs Vitals: Temp Pulse Resp BP Pulse Ox 98.2 F 88 16 127/58 H 95 05/02/19 17:23 05/02/19 17:23 05/02/19 17:23 05/02/19 17:23 05/02/19 17:23 Notes: Physical exam: GENERAL: Alert and oriented x3, no acute distress blood pressure is 112/55, pulse is 69, respiratory rate 15, O2 sat 99% on room air, HEAD: Atraumatic, normocephalic. EYES: Pupils equal round and reactive to light, extraocular movements intact, sclera anicteric, conjunctiva are normal. ENT: TMs normal, nares patent, oropharynx clear without exudates. Moist mucous membranes. NECK: Normal range of motion, supple without obvious mass or JVD. LUNGS: Breath sounds clear to auscultation bilaterally and equal. No wheezes rales or rhonchi. HEART: Regular rate and rhythm without murmurs, rubs or gallops. ABDOMEN: Soft, normoactive bowel sounds. No tenderness to palpation. No guarding, no rebound. No masses appreciated. EXTREMITIES: Normal range of motion, no pitting or edema. No clubbing or cyanosis. NEUROLOGICAL: Cranial nerves II through XII grossly intact. Normal speech, moving all extremities. PSYCH: Normal mood, normal affect. SKIN: Warm, Dry, normal turgor, no rashes or lesions noted. Course - Re-evaluation Re-evalutation: 05/03/19 03:02 Note: I did discuss the case with Dr. Billingsley who is willing to admit the patient for further observation. I did discuss this option with the patient but she told me she wants to go home. I did observe the patient several hours in the emergency room and her troponins remain negative. She was ambulating around the emergency room and her O2 sats remained in the upper 90s. CTA of the chest showed no pulmonary emboli. There was an incidental finding of a 4 cm ascending aorta consistent with an aortic aneurysm. The radiologist to compare that to a CT done last summer and there was no significant change. There is no evidence of dissection. I discussed these findings with the patient and her daughter was at the bedside and I advised him to follow-up with her primary care doctor for follow-up with vascular surgeon. - Vital Signs Vital signs: Temp Pulse Resp BP Pulse Ox 98.2 F 88 16 127/58 H 95 05/02/19 17:23 05/02/19 17:23 05/02/19 17:23 05/02/19 17:23 05/02/19 17:23 - Laboratory Result Diagrams: 05/02/19 18:40 05/02/19 18:40 Laboratory results interpreted by me: 05/02/19 05/02/19 18:40 18:40 WBC 13.8 H RDW 14.9 H Seg Neutrophils % 80.6 H Lymphocytes % 11.8 L Absolute Neutrophils 11.1 H Calcium 10.4 H - Diagnostic Test Radiology reviewed: Image reviewed, Reports reviewed - X-ray shows no infiltrates - EKG Interpretation by Me Rate: Normal Rhythm: NSR - EKG shows normal sinus rhythm with a regular rate of 78, no acute ST-T wave changes Discharge - Discharge Clinical Impression: Pleurisy, Dizziness Condition: Stable Disposition: HOME, SELF-CARE Additional Instructions: As we discussed, the heart tests were normal. The CT showed no evidence of blood clots. There was an incidental finding as we discussed: The aorta coming out of your heart was measured at 4 cm which is enlarged. This is consistent with an aortic aneurysm of the a sending aorta. They did compare it to a CT done a year ago and it showed no significant change from then. However, we do recommend you follow-up with a vascular surgeon so that this can be followed over time. If this dilates further, intervention may be necessary at that time. Otherwise continue current medicines. Take the Prilosec as prescribed. I do want you to follow-up with your doctors bring a copy of today's test report results with you. There is a copy of the blood tests and CT report in this discharge summary. Return to the emergency room for worsening pain, shortness of breath or any concerns or getting worse. Prescriptions: Omeprazole Magnesium [Prilosec Otc] 20 mg PO DAILY #21 tablet.dr Referrals: NEIL DRISCOLL MD [ACTIVE STAFF] - 05/05/19
--- NOTE | 2019-05-02 22:18 | EKG REPORT ---
SEVERITY:- NORMAL ECG - SINUS RHYTHM : Confirmed by: Fidel Hatch MD 02-May-2019 22:18:01
--- NOTE | 2019-05-02 22:34 | RADIOLOGY REPORT (SQ) ---
EXAM DESCRIPTION: [facility]: CT CHEST ANGIOGRAPHY WITHOUT THEN WITH IV CONTRAST CLINICAL HISTORY: 74 years Female; cp TECHNIQUE: CT angiogram of the chest using intravenous contrast.. MIP reconstructions were performed. All CT scans at this facility use dose modulation, iterative reconstruction, and/or weight based dosing when appropriate to reduce radiation dose to as low as reasonably achievable. COMPARISON: 05/28/2018. FINDINGS: Chest: No filling defects in the central pulmonary arteries. There is minimal dependent atelectasis in the lower lobes. No pneumothorax or pleural effusion. No acute infiltrates. Aorta: Ascending thoracic aorta is 4.0 cm diameter. Descending thoracic aorta is 2.5 cm diameter, with diffuse intimal thickening. No aortic dissection. There is minimal pericardial fluid. No mediastinal adenopathy. IMPRESSION: 1. No CT evidence for pulmonary embolism. 2. 4 cm ascending thoracic aortic aneurysm, similar to the 05/28/2018 exam 3. No aortic dissection. 4. No acute pulmonary infiltrates.
[2019-05-03 03:09] VITALS: BP 112/62
== END 2019-05-03 03:53 | disposition home or self-care (01) ==
LOC: ER 17:04
DX: R09.1 Pleurisy (principal); R07.9 Chest pain, unspecified; R55 Syncope and collapse; R53.1 Weakness; Z88.0 Allergy status to penicillin; Z88.2 Allergy status to sulfonamides; J45.909 Unspecified asthma, uncomplicated
CPT/HCPCS: 93005; 99285; 36415; 82553; 82550; 85025; 80053; 84484; 83880; 71045; 71275; 93010; A9270; J7030; 96361

== ENCOUNTER 2019-05-30 20:32 | Inpatient (IN) | payer MEDICARE ==
--- NOTE | 2019-05-30 22:30 | ER Document Report ---
ED GI/ - General Chief Complaint: Bloody Stools Stated Complaint: ABDOMINAL PAIN Time Seen by Provider: 05/30/19 22:19 Notes: Patient is a 74-year-old female that comes to the emergency department for chief complaint of lower abdominal pain and bloody bowel movements. She states she started having pain and bowel movements with mixed bright red blood at approximately 1 PM, states she has had "probably 20" small bowel movements of the same since that time. She states she threw up once, nonbloody vomit. She denies fever. She denies other locations of pain. She is on baby aspirin twice a day, no other blood thinners. She reports history of and hysterectomy. Also has a history of asthma, GERD, anxiety, and takes tramadol for pain. TRAVEL OUTSIDE OF THE [place] IN LAST 30 DAYS: No - Related Data Allergies/Adverse Reactions: ampicillin Allergy (Verified 05/31/19 01:16) Edema Sulfa (Sulfonamide Antibiotics) Allergy (Verified 05/31/19 01:16) prednisone Adverse Reaction (Verified 05/31/19 01:16) Past Medical History - General Information source: Patient - Social History Smoking Status: Never Smoker Frequency of alcohol use: None Drug Abuse: None Lives with: Family Family History: Reviewed & Not Pertinent - Past Medical History Cardiac Medical History: Reports: Hx Hypercholesterolemia Denies: Hx Coronary Artery Disease, Hx Heart Attack, Hx Hypertension Pulmonary Medical History: Reports: Hx Asthma Denies: Hx Bronchitis, Hx COPD, Hx Pneumonia Neurological Medical History: Denies: Hx Cerebrovascular Accident, Hx Seizures Renal/ Medical History: Denies: Hx Peritoneal Dialysis Musculoskeletal Medical History: Reports Hx Arthritis Past Surgical History: Reports: Hx Section - 3, Hx Gynecologic Surgery - fibroid tumors removed, Hx Hysterectomy - Immunizations Hx Diphtheria, Pertussis, Tetanus Vaccination: Yes Hx Pneumococcal Vaccination: 11/26/15 Review of Systems - Review of Systems Constitutional: No symptoms reported EENT: No symptoms reported Cardiovascular: No symptoms reported Respiratory: No symptoms reported Gastrointestinal: See HPI Genitourinary: No symptoms reported Female Genitourinary: No symptoms reported Musculoskeletal: No symptoms reported Skin: No symptoms reported Hematologic/Lymphatic: No symptoms reported Neurological/Psychological: No symptoms reported Physical Exam - Vital signs Vitals: Temp Pulse Resp BP Pulse Ox 98.4 F 79 16 103/83 96 05/30/19 20:55 05/30/19 20:55 05/30/19 20:55 05/30/19 20:55 05/30/19 20:55 - Notes Notes: GENERAL: Patient appears uncomfortable, slightly restless and shifting in the bed. HEAD: Normocephalic, atraumatic. EYES: Pupils equal, round, and reactive to light. Extraocular movements intact. ENT: Oral mucosa moist, tongue midline. Oropharynx unremarkable. Airway patent. LUNGS: Clear to auscultation bilaterally, no wheezes, rales, or rhonchi. No respiratory distress. HEART: Regular rate and rhythm. No murmur ABDOMEN: Tenderness with wincing mainly in the left side of the abdomen in the mid to lower abdomen. No rigidity or specific guarding. Bowel sounds present throughout. Old midline scar noted. GENITOURINARY: Deferred EXTREMITIES: Moves all 4 extremities spontaneously. No edema, normal radial and dorsalis pedis pulses bilaterally. No cyanosis. BACK: no cervical, thoracic, lumbar midline tenderness. No saddle anesthesia, normal distal neurovascular exam. Moves all extremities in full range of motion. NEUROLOGICAL: Alert and oriented x3. Normal speech. Cranial nerves II through XII grossly intact. PSYCH: Normal affect, normal mood. SKIN: Warm, dry, normal turgor. No rashes or lesions noted. Course - Re-evaluation Re-evalutation: 05/30/19 23:27 Patient tells me she has been having constant stools, however when I asked her to provide when she states she could not. As result I performed a rectal exam (with Addie AVERY at bedside) that shows hemorrhoids, no obvious current bleeding, small amount of stool with positive Hemoccult but no gross blood. Does not appear to be having a current notable hemorrhage. However patient does have abdominal pain on exam in the mid to left lower abdomen with wincing. Clinical picture is more suggestive of colitis/diverticulitis but not suggesting acute lower GI bleed. CBC shows leukocytosis at 20,000. Hemoglobin is normal at 14.8. Chemistry n onspecific. Urinalysis unremarkable. CAT scan was performed because of suspected abnormality, this shows fairly extensive colitis but no abscess or perforation. No other acute findings. Discussed with patient. Because of her age, pain, leukocytosis, passing blood, and her reporting vomiting when she tried to eat/drink earlier, patient will be discussed with hospitalist for admission. Patient states satisfaction and agreement. Initiating antibiotics. 05/31/19 00:[address] Billingsley, on-call for Dr. Bazan patient's primary care provider, patient accepted to telemetry full admission. - Vital Signs Vital signs: Temp Pulse Resp BP Pulse Ox 98.4 F 61 16 123/57 L 96 05/31/19 03:28 05/31/19 03:28 05/31/19 03:28 05/31/19 03:28 05/31/19 03:28 - Laboratory Result Diagrams: 05/31/19 04:07 05/31/19 04:07 Laboratory results interpreted by me: 05/30/19 05/30/19 05/30/19 21:30 22:41 22:41 WBC 20.1 H RDW 15.2 H Seg Neuts % (Manual) 85 H Lymphocytes % (Manual) 10 L Abs Neuts (Manual) 17.1 H Glucose 111 H Alkaline Phosphatase 145 H Urine Ketones 25 H Urine Blood SMALL H Discharge - Discharge Clinical Impression: Colitis, Bloody stool Abdominal pain Qualifiers: Abdominal location: left lower quadrant Qualified Code(s): R10.32 - Left lower quadrant pain Leukocytosis Qualifiers: Leukocytosis type: unspecified Qualified Code(s): D72.829 - Elevated white blood cell count, unspecified Condition: Stable Disposition: ADMITTED INPATIENT Admitting Provider: Jose Cruz - for Dr. Bazan Unit Admitted: Telemetry
[2019-05-30 22:49] LABS: APPEARANCE,URINE CLOUDY; BILIRUBIN,URINE NEGATIVE (NEGATIVE); COLOR,URINE YELLOW; GLUCOSE, URINE NEGATIVE (NEGATIVE); KETONES,URINE 25 mg/dL (NEGATIVE); LEUKOCYTE ESTERASE,URINE NEGATIVE (NEGATIVE); NITRITE,URINE NEGATIVE (NEGATIVE); PROTEIN,URINE NEGATIVE (NEGATIVE); UROBILINOGEN,URINE NEGATIVE mg/dL (<2.0)
[2019-05-30 22:50] LABS: URINE SPECIFIC GRAVITY 1.023
[2019-05-30 22:55] LABS: HEMOGLOBIN 14.8 g/dL (12.0-15.5); MEAN CORPUSCULAR HEMOGLOBIN 30.7 pg (27.0-33.4); MEAN CORPUSCULAR HGB CONC 33.7 g/dL (32.0-36.0); MEAN CORPUSCULAR VOLUME 91 fl (80-97); PLATELET COUNT 445 10^3/uL (150-450); RED BLOOD COUNT 4.83 10^6/uL (3.72-5.28); RED CELL DISTRIBUTION WIDTH 15.2 % (11.5-14.0); WHITE BLOOD COUNT 20.1 10^3/uL (4.0-10.5)
[2019-05-30 23:11] LABS: ABSOLUTE MONOCYTES # (MANUAL) 0.8 10^3/uL (0.1-1.4); BASOPHILS % (MANUAL) 1 % (0-2); EOSINOPHILS % (MANUAL) 0 % (0-6); LYMPHOCYTES % (MANUAL) 10 % (13-45); MONOCYTES % (MANUAL) 4 % (3-13); SEGMENTED NEUTROPHILS % (MAN) 85 % (42-78); TOTAL CELLS COUNTED 100
[2019-05-30 23:13] LABS: PLATELET CLUMPS PRESENT
[2019-05-30 23:14] LABS: ALANINE AMINOTRANSFERASE 15 U/L (9-52); ALBUMIN 4.7 g/dL (3.5-5.0); ALKALINE PHOSPHATASE 145 U/L (38-126); ANION GAP 12 (5-19); ASPARTATE AMINO TRANSFERASE 36 U/L (14-36); BILIRUBIN,DIRECT 0.2 mg/dL (0.0-0.4); BILIRUBIN,TOTAL 0.6 mg/dL (0.2-1.3); BLOOD UREA NITROGEN 12 mg/dL (7-20); CARBON DIOXIDE 28 mmol/L (22-30); CHLORIDE 102 mmol/L (98-107); GLUCOSE 111 mg/dL (75-110); LIPASE 43.9 U/L (23-300); POTASSIUM 4.4 mmol/L (3.6-5.0); SODIUM 141.6 mmol/L (137-145)
[2019-05-30 23:16] LABS: PARTIAL THROMBOPLASTIN TIME 28.7 SEC (23.5-35.8); PROTHROMBIN TIME 13.2 SEC (11.4-15.4)
[2019-05-30 23:17] LABS: ANISOCYTOSIS SLIGHT; POIKILOCYTOSIS SLIGHT
[2019-05-30] MEDS ORDERED: NORMAL SALINE 1000 ML 1,000 ML IV ONE (23:26)
[2019-05-30] MEDS ORDERED: ONDANSETRON HCL INJ/PF 4 MG/2 ML SDV IV ONE (23:27)
[2019-05-30] MEDS ORDERED: MORPHINE SULFATE 10 MG/ML INJ IV ONE (23:27)
--- NOTE | 2019-05-31 00:06 | RADIOLOGY REPORT (SQ) ---
EXAM DESCRIPTION: [facility]: CT ABDOMEN PELVIS WITH IV CONTRAST CLINICAL HISTORY: 74 years Female; lower abd pain, blood in stool TECHNIQUE: CT of the abdomen and pelvis using intravenous contrast. All CT scans at this facility use dose modulation, iterative reconstruction, and/or weight based dosing when appropriate to reduce radiation dose to as low as reasonably achievable. COMPARISON: CT 05/28/2018 FINDINGS: Abdomen: Liver:No focal lesions. No intrahepatic ductal distention. Gallbladder:Nondistended Pancreas:Within normal limits Spleen:Within normal limits Right kidney:No hydronephrosis. No focal lesion. Left kidney:No hydronephrosis. No focal lesion. Adrenal glands:Within normal limits Vascular structures: Moderate aortic calcifications, without aneurysm or dissection. Pelvis: Small bowel:No significant distention. Appendix: Surgically absent Colon: Wall thickening and pericolonic edema along much of the descending colon, beginning in the distal transverse colon. There are a few scattered diverticula in the sigmoid colon. No significant proximal colonic distention. No extraluminal air or fluid collection. No free intraperitoneal fluid or air. Bones: No acute bone findings. Bladder: Unremarkable. No pelvic mass or adenopathy. IMPRESSION: 1. Acute colitis involving distal transverse colon and much of the descending colon. No obstruction, perforation, or abscess.
[2019-05-31] MEDS ORDERED: LEVOFLOXACIN 750 MG/D5W RTU 750 MG/150 ML RTUPB IV ONE (00:15)
[2019-05-31] MEDS ORDERED: METRONIDAZOLE 500 MG/NS RTU 500 MG/100 ML RTUPB IV ONE (00:16)
[2019-05-31 04:37] LABS: ABSOLUTE BASOPHILS # (AUTO) 0.1 10^3/uL (0.0-0.2); ABSOLUTE EOSINOPHILS # (AUTO) 0.1 10^3/uL (0.0-0.6); ABSOLUTE LYMPHOCYTES (AUTO) 2.5 10^3/uL (0.5-4.7); ABSOLUTE MONOCYTES (AUTO) 1.4 10^3/uL (0.1-1.4); ABSOLUTE NEUT (AUTO) 11.4 10^3/uL (1.7-8.2); BASOPHILS % (AUTO) 0.4 % (0-2); EOSINOPHILS % (AUTO) 0.5 % (0-6); HEMATOCRIT 38.5 % (36.0-47.0); HEMOGLOBIN 12.8 g/dL (12.0-15.5); LYMPHOCYTES % (AUTO) 15.9 % (13-45); MEAN CORPUSCULAR HEMOGLOBIN 30.3 pg (27.0-33.4); MEAN CORPUSCULAR HGB CONC 33.1 g/dL (32.0-36.0); MEAN CORPUSCULAR VOLUME 92 fl (80-97); MONOCYTES % (AUTO) 8.8 % (3-13); PLATELET COUNT 395 10^3/uL (150-450); RED CELL DISTRIBUTION WIDTH 15.1 % (11.5-14.0); SEGMENTED NEUTROPHILS % (AUTO) 74.4 % (42-78); TOTAL CELLS COUNTED % (AUTO) 100 %; WHITE BLOOD COUNT 15.4 10^3/uL (4.0-10.5)
[2019-05-31 04:53] LABS: ALANINE AMINOTRANSFERASE 22 U/L (9-52); ALBUMIN 3.6 g/dL (3.5-5.0); ALKALINE PHOSPHATASE 102 U/L (38-126); ANION GAP 8 (5-19); ASPARTATE AMINO TRANSFERASE 23 U/L (14-36); BILIRUBIN,DIRECT 0.2 mg/dL (0.0-0.4); BILIRUBIN,TOTAL 0.6 mg/dL (0.2-1.3); BLOOD UREA NITROGEN 10 mg/dL (7-20); CALCIUM 9.3 mg/dL (8.4-10.2); CARBON DIOXIDE 27 mmol/L (22-30); CHLORIDE 106 mmol/L (98-107); GLUCOSE 105 mg/dL (75-110); POTASSIUM 4.3 mmol/L (3.6-5.0); SODIUM 140.7 mmol/L (137-145); TOTAL PROTEIN 6.1 g/dL (6.3-8.2)
[2019-05-31 09:44] LABS: ABSOLUTE BASOPHILS # (AUTO) 0.1 10^3/uL (0.0-0.2); ABSOLUTE EOSINOPHILS # (AUTO) 0.1 10^3/uL (0.0-0.6); ABSOLUTE LYMPHOCYTES (AUTO) 1.4 10^3/uL (0.5-4.7); ABSOLUTE MONOCYTES (AUTO) 1.2 10^3/uL (0.1-1.4); ABSOLUTE NEUT (AUTO) 10.3 10^3/uL (1.7-8.2); BASOPHILS % (AUTO) 0.4 % (0-2); EOSINOPHILS % (AUTO) 0.9 % (0-6); HEMATOCRIT 36.6 % (36.0-47.0); HEMOGLOBIN 12.1 g/dL (12.0-15.5); LYMPHOCYTES % (AUTO) 10.4 % (13-45); MEAN CORPUSCULAR HEMOGLOBIN 30.1 pg (27.0-33.4); MEAN CORPUSCULAR HGB CONC 33.1 g/dL (32.0-36.0); MEAN CORPUSCULAR VOLUME 91 fl (80-97); MONOCYTES % (AUTO) 9.2 % (3-13); PLATELET COUNT 369 10^3/uL (150-450); RED BLOOD COUNT 4.02 10^6/uL (3.72-5.28); RED CELL DISTRIBUTION WIDTH 15.1 % (11.5-14.0); SEGMENTED NEUTROPHILS % (AUTO) 79.1 % (42-78); TOTAL CELLS COUNTED % (AUTO) 100 %
[2019-05-31] MEDS: MORPHINE SULFATE 10 MG/ML INJ IV PRN ×3 (09:59→21:05)
[2019-05-31] MEDS ORDERED: CEFTRIAXONE SODIUM 1,000 MG in DEXTROSE 5%-WATER 50 ML IV SCH (10:00)
--- NOTE | 2019-05-31 10:40 | PDOC H&P ---
History of Present Illness Admission Date/PCP: 05/31/19 00:47 LATISHA DRISCOLL MD Patient complains of: Abdominal pain History of Present Illness: JOSEF LAWRENCE is a 74 [address] of Dr[address] Driscoll who presented to the ED with new onset abdominal pain, nausea and bloody diarrhea. She reported onset few hours prior to her presentation. She admitted to chronic constipation. She reported bilious vomitus and bright red blood in her stool. There has been multiple bowel movement at her presentation and since admission. Abdominal pain has been persistent and not related to her bowel movement. She denied similar episodes in the past. 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 She reported GERD for which she was prescribed Purple pill (Nexium). She is on Aspirin regimen. She denied definite fever but reported chills and flitting hot and cold sensation. She localized her abdominal pain to LUQ, LLQ and periumbilical regions. She denied any dysuria or hematuria. No flank pain. No dizziness or lightheadedness. No headache. There is nasal and sinus congestion. Her morbidities include Hyperlipidemia, Asthma, and Arthritis. Her surgical history is significant for hysterectomy and . Past Medical History Cardiac Medical History: Reports: Hyperlipidema Denies: Coronary Artery Disease, Myocardial Infarction, Hypertension Pulmonary Medical History: Reports: Asthma Denies: Bronchitis, Chronic Obstructive Pulmonary Disease (COPD), Pneumonia Neurological Medical History: Denies: Seizures Musculoskeltal Medical History: Reports: Arthritis Psychiatric Medical History: Reports: Depression Hematology: Denies: Anemia Past Surgical History Past Surgical History: Reports: Section - 3, Hysterectomy Social History Lives with: Family Smoking Status: Never Smoker Frequency of Alcohol Use: None Hx Recreational Drug Use: No Drugs: None Hx Prescription Drug Abuse: No - Advance Directive Resuscitation Status: Full Code Family History Family History: Reviewed & Not Pertinent Parental Family History Reviewed: Yes Children Family History Reviewed: Yes Sibling(s) Family History Reviewed.: Yes Medication/Allergy Allergies/Adverse Reactions: ampicillin Allergy (Verified 05/31/19 01:16) Edema Sulfa (Sulfonamide Antibiotics) Allergy (Verified 05/31/19 01:16) prednisone Adverse Reaction (Verified 05/31/19 01:16) Review of Systems Constitutional: PRESENT: chills Eyes: ABSENT: visual disturbances Ears: ABSENT: hearing changes Nose, Mouth, and Throat: ABSENT: as per HPI, headache(s), mouth pain, sore throat, vertigo, other Cardiovascular: ABSENT: chest pain, dyspnea on exertion, edema, orthropnea, palpitations Respiratory: ABSENT: cough, hemoptysis Gastrointestinal: PRESENT: abdominal pain, diarrhea, heartburn, hematochezia, nausea, vomiting Genitourinary: ABSENT: dysuria, hematuria Musculoskeletal: ABSENT: joint swelling Integumentary: ABSENT: rash, wounds Neurological: ABSENT: abnormal gait, abnormal speech, confusion, dizziness, focal weakness, syncope Psychiatric: ABSENT: anxiety, depression, homidical ideation, suicidal ideation Endocrine: ABSENT: cold intolerance, heat intolerance, polydipsia, polyuria Hematologic/Lymphatic: ABSENT: easy bleeding, easy bruising, lymphadenopathy Allergic/Immunologic: ABSENT: seasonal rhinorrhea Physical Exam Vital Signs: Temp Pulse Resp BP Pulse Ox 97.3 F 69 14 127/65 H 99 05/31/19 07:47 05/31/19 07:47 05/31/19 07:47 05/31/19 07:47 05/31/19 07:47 Intake & Output 05/30/19 05/31/19 06/01/19 06:59 06:59 06:59 Intake Total 1490 Balance 1490 Weight 59.7 kg General appearance: PRESENT: no acute distress, well-developed, well-nourished Head exam: PRESENT: atraumatic, normocephalic Eye exam: PRESENT: conjunctiva pink, EOMI, PERRLA. ABSENT: scleral icterus Ear exam: PRESENT: normal external ear exam Mouth exam: PRESENT: moist Neck exam: PRESENT: full ROM. ABSENT: carotid bruit, JVD, lymphadenopathy, thyromegaly Respiratory exam: PRESENT: clear to auscultation guillaume Cardiovascular exam: PRESENT: RRR. ABSENT: diastolic murmur, rubs, systolic murmur Vascular exam: PRESENT: normal capillary refill. ABSENT: pallor GI/Abdominal exam: PRESENT: normal bowel sounds, soft, tenderness - Epigastric, LUQ, LLQ and umbilical regions to deep palpation. ABSENT: ascites, guarding, mass, organolmegaly, rebound Rectal exam: PRESENT: deferred Extremities exam: ABSENT: pedal edema Musculoskeletal exam: PRESENT: normal inspection Neurological exam: PRESENT: alert, awake, oriented to person, oriented to place, oriented to time, oriented to situation, CN II-XII grossly intact. ABSENT: motor sensory deficit Psychiatric exam: PRESENT: appropriate affect, normal mood. ABSENT: homicidal ideation, suicidal ideation Skin exam: PRESENT: dry, normal color, warm Results Laboratory Results: 05/31/19 09:18 05/31/19 04:07 05/30/19 05/30/19 05/30/19 21:30 22:41 22:41 WBC 20.1 H RBC 4.83 Hgb 14.8 Hct 44.0 MCV 91 MCH 30.7 MCHC 33.7 RDW 15.2 H Plt Count 445 Seg Neutrophils % Not Reportable Lymphocytes % Not Reportable Monocytes % Not Reportable Eosinophils % Not Reportable Basophils % Not Reportable Absolute Neutrophils Not Reportable Absolute Lymphocytes Not Reportable Absolute Monocytes Not Reportable Absolute Eosinophils Not Reportable Absolute Basophils Not Reportable Sodium 141.6 Potassium 4.4 Chloride 102 Carbon Dioxide 28 Anion Gap 12 BUN 12 Creatinine 0.72 Est GFR ( Amer) > 60 Est GFR (Non-Af Amer) > 60 Glucose 111 H Calcium 10.0 Total Bilirubin 0.6 AST 36 ALT 15 Alkaline Phosphatase 145 H Total Protein 8.0 Albumin 4.7 Lipase 43.9 Urine Color YELLOW Urine Appearance CLOUDY Urine pH 5.0 Ur Specific [place] 1.023 Urine Protein NEGATIVE Urine Glucose (UA) NEGATIVE Urine Ketones 25 H Urine Blood SMALL H Urine Nitrite NEGATIVE Ur Leukocyte Esterase NEGATIVE Urine WBC (Auto) 1 Urine RBC (Auto) 0 Blood Type Antibody Screen 05/30/19 05/31/19 05/31/19 22:41 04:07 04:07 WBC 15.4 H RBC 4.20 Hgb 12.8 Hct 38.5 MCV 92 MCH 30.3 MCHC 33.1 RDW 15.1 H Plt Count 395 Seg Neutrophils % 74.4 Lymphocytes % 15.9 Monocytes % 8.8 Eosinophils % 0.5 Basophils % 0.4 Absolute Neutrophils 11.4 H Absolute Lymphocytes 2.5 Absolute Monocytes 1.4 Absolute Eosinophils 0.1 Absolute Basophils 0.1 Sodium 140.7 Potassium 4.3 Chloride 106 Carbon Dioxide 27 Anion Gap 8 BUN 10 Creatinine 0.71 Est GFR ( Amer) > 60 Est GFR (Non-Af Amer) > 60 Glucose 105 Calcium 9.3 Total Bilirubin 0.6 AST 23 ALT 22 Alkaline Phosphatase 102 Total Protein 6.1 L Albumin 3.6 Lipase Urine Color Urine Appearance Urine pH Ur Specific [place] Urine Protein Urine Glucose (UA) Urine Ketones Urine Blood Urine Nitrite Ur Leukocyte Esterase Urine WBC (Auto) Urine RBC (Auto) Blood Type AB POSITIVE Antibody Screen NEGATIVE 05/31/19 09:18 WBC 13.0 H RBC 4.02 Hgb 12.1 Hct 36.6 MCV 91 MCH 30.1 MCHC 33.1 RDW 15.1 H Plt Count 369 Seg Neutrophils % 79.1 H Lymphocytes % 10.4 L Monocytes % 9.2 Eosinophils % 0.9 Basophils % 0.4 Absolute Neutrophils 10.3 H Absolute Lymphocytes 1.4 Absolute Monocytes 1.2 Absolute Eosinophils 0.1 Absolute Basophils 0.1 Sodium Potassium Chloride Carbon Dioxide Anion Gap BUN Creatinine Est GFR ( Amer) Est GFR (Non-Af Amer) Glucose Calcium Total Bilirubin AST ALT Alkaline Phosphatase Total Protein Albumin Lipase Urine Color Urine Appearance Urine pH Ur Specific [place] Urine Protein Urine Glucose (UA) Urine Ketones Urine Blood Urine Nitrite Ur Leukocyte Esterase Urine WBC (Auto) Urine RBC (Auto) Blood Type Antibody Screen Impressions: Abdomen/Pelvis CT 05/30/19 22:28 IMPRESSION: 1. Acute colitis involving distal transverse colon and much of the descending colon. No obstruction, perforation, or abscess. Assessment & Plan - Diagnosis (1) Colitis with rectal bleeding Is this a current diagnosis for this admission?: Yes Plan: Differential concerns include inflammatory, infectious, and vascular etiologies. See admitting physician orders for details about care plan. (2) HLD (hyperlipidemia) Qualifiers: Hyperlipidemia type: unspecified Qualified Code(s): E78.5 - Hyperlipidemia, unspecified Is this a current diagnosis for this admission?: Yes Plan: See admitting physician orders for details about care plan. (3) Asthma Qualifiers: Asthma severity: unspecified severity Asthma complication type: unspecified Is this a current diagnosis for this admission?: Yes Plan: See admitting physician orders for details about care plan. (4) GERD (gastroesophageal reflux disease) Qualifiers: Esophagitis presence: esophagitis presence not specified Qualified Code(s): K21.9 - Gastro-esophageal reflux disease without esophagitis Is this a current diagnosis for this admission?: Yes Plan: See admitting physician orders for details about care plan. (5) Osteoarthritis involving multiple joints on both sides of body Is this a current diagnosis for this admission?: Yes Plan: See admitting physician orders for details about care plan. - Time Time Spent: 50 to 70 Minutes Medications reviewed and adjusted accordingly: Yes Anticipated discharge: Home Within: Other - Inpatient Certification Based on my medical assessment, after consideration of the patient's comorbidities, presenting symptoms, or acuity I expect that the services needed warrant INPATIENT care.: Yes I certify that my determination is in accordance with my understanding of Medicare's requirements for reasonable and necessary INPATIENT services [42 CFR 412.3e].: Yes Medical Necessity: Significant Comorbidiites Make Outpatient Treatment Too Risky, Need Close Monitoring Due to Risk of Patient Decompensation, Need For IV Fluids, Need For Continuous Telemetry Monitoring, Need for Pain Control, Need for IV Antibiotics, Risk of Complication if Not Cared For in Hospital, Risk of Diagnosis Which Will Require Inpatient Eval/Care/Monitoring Post Hospital Care: D/C Thread Trimmer Documentation - Plan Summary Plan Summary: See admitting physician orders for details about care plan.
[2019-05-31] MEDS: PANTOPRAZOLE SODIUM 40 MG VIAL IV SCH ×2 (11:48→21:05)
[2019-05-31] MEDS: METRONIDAZOLE 500 MG/NS RTU 500 MG/100 ML RTUPB IV SCH ×2 (11:49→18:41)
[2019-05-31] MEDS: NORMAL SALINE 1000 ML 1,000 ML IV PRN (16:15)
[2019-05-31] MEDS: LEVOFLOXACIN 500 MG/D5W RTU 500 MG/100 ML RTUPB IV SCH (21:05)
[2019-06-01] MEDS: METRONIDAZOLE 500 MG/NS RTU 500 MG/100 ML RTUPB IV SCH ×5 (00:02→23:40)
[2019-06-01 04:33] LABS: ABSOLUTE BASOPHILS # (AUTO) 0.1 10^3/uL (0.0-0.2); ABSOLUTE EOSINOPHILS # (AUTO) 0.2 10^3/uL (0.0-0.6); ABSOLUTE LYMPHOCYTES (AUTO) 2.5 10^3/uL (0.5-4.7); ABSOLUTE MONOCYTES (AUTO) 1.1 10^3/uL (0.1-1.4); ABSOLUTE NEUT (AUTO) 5.2 10^3/uL (1.7-8.2); BASOPHILS % (AUTO) 0.9 % (0-2); EOSINOPHILS % (AUTO) 2.6 % (0-6); HEMATOCRIT 34.1 % (36.0-47.0); HEMOGLOBIN 11.4 g/dL (12.0-15.5); LYMPHOCYTES % (AUTO) 26.8 % (13-45); MEAN CORPUSCULAR HEMOGLOBIN 30.7 pg (27.0-33.4); MEAN CORPUSCULAR HGB CONC 33.4 g/dL (32.0-36.0); MEAN CORPUSCULAR VOLUME 92 fl (80-97); MONOCYTES % (AUTO) 12.5 % (3-13); PLATELET COUNT 335 10^3/uL (150-450); RED BLOOD COUNT 3.71 10^6/uL (3.72-5.28); RED CELL DISTRIBUTION WIDTH 14.8 % (11.5-14.0); SEGMENTED NEUTROPHILS % (AUTO) 57.2 % (42-78); TOTAL CELLS COUNTED % (AUTO) 100 %; WHITE BLOOD COUNT 9.1 10^3/uL (4.0-10.5)
[2019-06-01 04:57] LABS: ALANINE AMINOTRANSFERASE 23 U/L (9-52); ALBUMIN 2.9 g/dL (3.5-5.0); ALKALINE PHOSPHATASE 71 U/L (38-126); ASPARTATE AMINO TRANSFERASE 18 U/L (14-36); BILIRUBIN,DIRECT 0.2 mg/dL (0.0-0.4); BILIRUBIN,TOTAL 0.2 mg/dL (0.2-1.3); BLOOD UREA NITROGEN 7 mg/dL (7-20); CALCIUM 8.7 mg/dL (8.4-10.2); GLUCOSE 96 mg/dL (75-110); POTASSIUM 4.4 mmol/L (3.6-5.0); TOTAL PROTEIN 5.2 g/dL (6.3-8.2)
[2019-06-01 05:02] LABS: ANION GAP 6 (5-19); CARBON DIOXIDE 29 mmol/L (22-30); CHLORIDE 106 mmol/L (98-107); SODIUM 140.7 mmol/L (137-145)
[2019-06-01] MEDS: NORMAL SALINE 1000 ML 1,000 ML IV PRN ×2 (05:42→21:26)
--- NOTE | 2019-06-01 08:08 | PDOC CONSULTATION ---
Consultation Consult Date: 05/31/19 Provider Consulted: SURGICAL SURGICALIST Consult reason:: colitis History of Present Illness Admission Date/PCP: 05/31/19 00:47 DUANE ABEL PA-C Patient complains of: Abdominal pain and bloody diarrhea History of Present Illness: JOSEF LAWRENCE is a 74 year old female with complaints of left-sided abdominal pain for the last 2 days and bloody diarrhea. She reports that it began on May 29. She denies eating any raw meats, undercooked meals, or other suspicious foodstuffs. The patient denies a history of Crohn's disease or ulcerative colitis. She denies any history of dehydration or excessive exertion. Her pain is left-sided, and at its worst was 10 out of 10. She describes her pain is sharp and stabbing. Her pain is now much improved. She rates it 4 out of 10. She reports that the antibiotics and pain medication have made her pain better. Palpation and movement make it worse. The patient's last colonoscopy was more than 5 years ago (she is unsure of the exact date). She denies a history of colon polyps. She denies a family history of colon cancer. Currently the patient denies any other significant symptoms. She denies chest pain, shortness of breath, fevers, chills, nausea, vomiting, dizziness, orthostasis, fatigue, malaise, blurry vision. She does report a history of chronic constipation and back pain due to an injury. Past Medical History Cardiac Medical History: Reports: Hyperlipidema Denies: Coronary Artery Disease, Myocardial Infarction, Hypertension Pulmonary Medical History: Reports: Asthma Denies: Bronchitis, Chronic Obstructive Pulmonary Disease (COPD), Pneumonia Neurological Medical History: Denies: Seizures Musculoskeltal Medical History: Reports: Arthritis Psychiatric Medical History: Reports: Depression Hematology: Denies: Anemia Past Surgical History Past Surgical History: Reports: Section - 3, Hysterectomy Social History Lives with: Family Smoking Status: Never Smoker Frequency of Alcohol Use: None Hx Recreational Drug Use: No Drugs: None Hx Prescription Drug Abuse: No - Advance Directive Resuscitation Status: Full Code Family History Family History: Reviewed & Not Pertinent Parental Family History Reviewed: Yes Children Family History Reviewed: Yes Sibling(s) Family History Reviewed.: Yes Medication/Allergy Home Medications: Alprazolam [Xanax] 0.25 mg PO DAILYP PRN 05/31/19 Alprazolam [Xanax] 0.5 mg PO HSP PRN 05/31/19 Aspirin [Ecotrin 81 mg EC Tablet] 81 mg PO DAILY 05/31/19 Ibuprofen [Motrin 800 mg Tablet] 800 mg PO Q8HP PRN 05/31/19 Omeprazole 20 mg PO [id number] 05/31/19 Tramadol HCl [Ultram 50 mg Tablet] 50 mg PO Q8HP PRN 05/31/19 Allergies/Adverse Reactions: ampicillin Allergy (Verified 05/31/19 01:16) Edema Sulfa (Sulfonamide Antibiotics) Allergy (Verified 05/31/19 01:16) prednisone Adverse Reaction (Verified 05/31/19 01:16) Review of Systems Constitutional: ABSENT: anorexia, chills, fatigue, fever(s), headache(s) Eyes: ABSENT: visual disturbances Ears: ABSENT: hearing changes Nose, Mouth, and Throat: ABSENT: sore throat Cardiovascular: ABSENT: chest pain, dyspnea on exertion Respiratory: ABSENT: cough Gastrointestinal: PRESENT: abdominal pain, bloating, hematochezia, melena. ABSENT: hematemesis, nausea, vomiting Genitourinary: ABSENT: dysuria Musculoskeletal: PRESENT: back pain Integumentary: ABSENT: rash Neurological: ABSENT: confusion, convulsions, dizziness Psychiatric: ABSENT: anxiety, depression Endocrine: ABSENT: cold intolerance, heat intolerance Hematologic/Lymphatic: ABSENT: easy bleeding, easy bruising Physical Exam Vital Signs: Temp Pulse Resp BP Pulse Ox 98.2 F 61 14 128/59 H 100 05/31/19 12:00 05/31/19 14:00 05/31/19 12:00 05/31/19 12:00 05/31/19 12:00 Intake & Output 05/30/19 05/31/19 06/01/19 06:59 06:59 06:59 Intake Total 1490 740 Balance 1490 740 Weight 59.7 kg General appearance: PRESENT: no acute distress, cooperative Head exam: PRESENT: atraumatic, normocephalic Eye exam: PRESENT: EOMI, PERRLA. ABSENT: scleral icterus Mouth exam: PRESENT: moist, neck supple Teeth exam: ABSENT: poor dentation Neck exam: ABSENT: meningismus, tenderness, thyromegaly, tracheal deviation Respiratory exam: PRESENT: clear to auscultation guillaume, unlabored. ABSENT: chest wall tenderness, tachypnea, wheezes Cardiovascular exam: PRESENT: RRR Pulses: PRESENT: normal radial pulses Vascular exam: PRESENT: normal capillary refill GI/Abdominal exam: PRESENT: soft, tenderness - left upper quad, left lower quad, suprapubic. ABSENT: distended, firm, rebound, rigid Rectal exam: PRESENT: deferred Extremities exam: ABSENT: clubbing Musculoskeletal exam: ABSENT: deformity Neurological exam: PRESENT: alert, awake, oriented to person, oriented to place, oriented to time, oriented to situation, CN II-XII grossly intact Psychiatric exam: ABSENT: agitated, anxious, depressed Skin exam: ABSENT: cyanosis, erythema, jaundice Results Laboratory Results: 05/31/19 09:18 05/31/19 04:07 05/30/19 05/30/19 05/30/19 21:30 22:41 22:41 WBC 20.1 H RBC 4.83 Hgb 14.8 Hct 44.0 MCV 91 MCH 30.7 MCHC 33.7 RDW 15.2 H Plt Count 445 Seg Neutrophils % Not Reportable Lymphocytes % Not Reportable Monocytes % Not Reportable Eosinophils % Not Reportable Basophils % Not Reportable Absolute Neutrophils Not Reportable Absolute Lymphocytes Not Reportable Absolute Monocytes Not Reportable Absolute Eosinophils Not Reportable Absolute Basophils Not Reportable Sodium 141.6 Potassium 4.4 Chloride 102 Carbon Dioxide 28 Anion Gap 12 BUN 12 Creatinine 0.72 Est GFR ( Amer) > 60 Est GFR (Non-Af Amer) > 60 Glucose 111 H Calcium 10.0 Total Bilirubin 0.6 AST 36 ALT 15 Alkaline Phosphatase 145 H Total Protein 8.0 Albumin 4.7 Lipase 43.9 Urine Color YELLOW Urine Appearance CLOUDY Urine pH 5.0 Ur Specific [place] 1.023 Urine Protein NEGATIVE Urine Glucose (UA) NEGATIVE Urine Ketones 25 H Urine Blood SMALL H Urine Nitrite NEGATIVE Ur Leukocyte Esterase NEGATIVE Urine WBC (Auto) 1 Urine RBC (Auto) 0 Blood Type Antibody Screen 05/30/19 05/31/19 05/31/19 22:41 04:07 04:07 WBC 15.4 H RBC 4.20 Hgb 12.8 Hct 38.5 MCV 92 MCH 30.3 MCHC 33.1 RDW 15.1 H Plt Count 395 Seg Neutrophils % 74.4 Lymphocytes % 15.9 Monocytes % 8.8 Eosinophils % 0.5 Basophils % 0.4 Absolute Neutrophils 11.4 H Absolute Lymphocytes 2.5 Absolute Monocytes 1.4 Absolute Eosinophils 0.1 Absolute Basophils 0.1 Sodium 140.7 Potassium 4.3 Chloride 106 Carbon Dioxide 27 Anion Gap 8 BUN 10 Creatinine 0.71 Est GFR ( Amer) > 60 Est GFR (Non-Af Amer) > 60 Glucose 105 Calcium 9.3 Total Bilirubin 0.6 AST 23 ALT 22 Alkaline Phosphatase 102 Total Protein 6.1 L Albumin 3.6 Lipase Urine Color Urine Appearance Urine pH Ur Specific [place] Urine Protein Urine Glucose (UA) Urine Ketones Urine Blood Urine Nitrite Ur Leukocyte Esterase Urine WBC (Auto) Urine RBC (Auto) Blood Type AB POSITIVE Antibody Screen NEGATIVE 05/31/19 09:18 WBC 13.0 H RBC 4.02 Hgb 12.1 Hct 36.6 MCV 91 MCH 30.1 MCHC 33.1 RDW 15.1 H Plt Count 369 Seg Neutrophils % 79.1 H Lymphocytes % 10.4 L Monocytes % 9.2 Eosinophils % 0.9 Basophils % 0.4 Absolute Neutrophils 10.3 H Absolute Lymphocytes 1.4 Absolute Monocytes 1.2 Absolute Eosinophils 0.1 Absolute Basophils 0.1 Sodium Potassium Chloride Carbon Dioxide Anion Gap BUN Creatinine Est GFR ( Amer) Est GFR (Non-Af Amer) Glucose Calcium Total Bilirubin AST ALT Alkaline Phosphatase Total Protein Albumin Lipase Urine Color Urine Appearance Urine pH Ur Specific [place] Urine Protein Urine Glucose (UA) Urine Ketones Urine Blood Urine Nitrite Ur Leukocyte Esterase Urine WBC (Auto) Urine RBC (Auto) Blood Type Antibody Screen Impressions: Abdomen/Pelvis CT 05/30/19 22:28 IMPRESSION: 1. Acute colitis involving distal transverse colon and much of the descending colon. No obstruction, perforation, or abscess. Assessment & Plan - Diagnosis (1) Colitis with rectal bleeding Is this a current diagnosis for this admission?: Yes - Plan Summary Plan Summary: This is a 74-year-old female with a 2-day history of abdominal pain and hematochezia. She has a CT scan showing colitis of the descending and sigmoid colon. On exam today, she does not exhibit signs of an acute abdomen. Her white blood cell count is slightly elevated. She is afebrile, normotensive, and has a normal heart rate. Her colitis may be infectious, versus ischemic. It is much less likely that her colitis is autoimmune. At this time, supportive therapy is most appropriate. Continue antibiotics and hydration. She does have significant atherosclerotic disease of the aorta seen on CAT scan. Hopefully with antibiotics and hydration, her symptoms will improve. If she does not improve, she may require colectomy. The patient has not had a colonoscopy in many years. She will require colonoscopy, however timing of the exam would be optimal 4 to 6 weeks after her acute illness has resolved. I will continue to follow this patient very closely with you.
[2019-06-01] MEDS: PANTOPRAZOLE SODIUM 40 MG VIAL IV SCH ×2 (09:24→21:29)
[2019-06-01] MEDS ORDERED: SIMETHICONE 80 MG TAB.CHEW PO PRN (14:43)
--- NOTE | 2019-06-01 14:44 | PDOC PROGRESS REPORT ---
Subjective Progress Note for:: 06/01/19 Subjective:: Increase gas pain. No bowel movement or hematochezia.No nausea or vomiting. Tolerating full liquid diet. No chest pain. No fever or chills. Reason For Visit: COLISTIS Physical Exam Vital Signs: Temp Pulse Resp BP Pulse Ox 98.3 F 65 13 110/42 L 98 06/01/19 12:00 06/01/19 12:00 06/01/19 12:00 06/01/19 12:00 06/01/19 12:00 Intake & Output 05/31/19 06/01/19 06/02/19 06:59 06:59 06:59 Intake Total 1490 3220 1190 Output Total 3 Balance 1490 3217 1190 Weight 59.7 kg 59.7 kg General appearance: PRESENT: no acute distress Head exam: PRESENT: atraumatic, normocephalic Eye exam: PRESENT: conjunctiva pink. ABSENT: scleral icterus Ear exam: PRESENT: normal external ear exam Mouth exam: PRESENT: moist Respiratory exam: PRESENT: clear to auscultation guillaume Cardiovascular exam: PRESENT: RRR, +S1, +S2. ABSENT: diastolic murmur, rubs, systolic murmur Vascular exam: ABSENT: pallor GI/Abdominal exam: PRESENT: normal bowel sounds, soft, tenderness - LLQ region. ABSENT: distended, guarding, mass, organolmegaly, rebound Extremities exam: ABSENT: pedal edema Neurological exam: PRESENT: alert, awake, oriented to person, oriented to place, oriented to time, oriented to situation, CN II-XII grossly intact. ABSENT: motor sensory deficit Psychiatric exam: PRESENT: appropriate affect, normal mood. ABSENT: homicidal ideation, suicidal ideation Skin exam: PRESENT: dry, warm Results Laboratory Results: 06/01/19 04:11 06/01/19 04:11 06/01/19 06/01/19 04:11 04:11 WBC 9.1 RBC 3.71 L Hgb 11.4 L Hct 34.1 L MCV 92 MCH 30.7 MCHC 33.4 RDW 14.8 H Plt Count 335 Seg Neutrophils % 57.2 Lymphocytes % 26.8 Monocytes % 12.5 Eosinophils % 2.6 Basophils % 0.9 Absolute Neutrophils 5.2 Absolute Lymphocytes 2.5 Absolute Monocytes 1.1 Absolute Eosinophils 0.2 Absolute Basophils 0.1 Sodium 140.7 Potassium 4.4 Chloride 106 Carbon Dioxide 29 Anion Gap 6 BUN 7 Creatinine 0.73 Est GFR ( Amer) > 60 Est GFR (Non-Af Amer) > 60 Glucose 96 Calcium 8.7 Total Bilirubin 0.2 AST 18 ALT 23 Alkaline Phosphatase 71 Total Protein 5.2 L Albumin 2.9 L Impressions: Abdomen/Pelvis CT 05/30/19 22:28 IMPRESSION: 1. Acute colitis involving distal transverse colon and much of the descending colon. No obstruction, perforation, or abscess. Assessment & Plan - Diagnosis (1) Colitis with rectal bleeding Is this a current diagnosis for this admission?: Yes (2) HLD (hyperlipidemia) Qualifiers: Hyperlipidemia type: unspecified Qualified Code(s): E78.5 - Hyperlipidemia, unspecified Is this a current diagnosis for this admission?: Yes (3) Asthma Qualifiers: Asthma severity: unspecified severity Asthma complication type: unspecified Is this a current diagnosis for this admission?: Yes (4) GERD (gastroesophageal reflux disease) Qualifiers: Esophagitis presence: esophagitis presence not specified Qualified Code(s): K21.9 - Gastro-esophageal reflux disease without esophagitis Is this a current diagnosis for this admission?: Yes (5) Osteoarthritis involving multiple joints on both sides of body Is this a current diagnosis for this admission?: Yes - Time Time Spent with patient: 25-34 minutes Anticipated discharge: Home Within: Other - Inpatient Certification Based on my medical assessment, after consideration of the patient's comorbi dities, presenting symptoms, or acuity I expect that the services needed warrant INPATIENT care.: Yes I certify that my determination is in accordance with my understanding of Medicare's requirements for reasonable and necessary INPATIENT services [42 CFR 412.3e].: Yes Medical Necessity: Significant Comorbidiites Make Outpatient Treatment Too Risky, Need Close Monitoring Due to Risk of Patient Decompensation, Need For IV Fluids, Need for Pain Control, Need for IV Antibiotics, Risk of Complication if Not Cared For in Hospital, Risk of Diagnosis Which Will Require Inpatient Eval/Care/Monitoring Post Hospital Care: D/C Building Pressure Washer Documentation - Plan Summary Plan Summary: Continue current current medication management. Start on Simethicone 120 mg po qid prn for gas pain and Colace 100 mg po bid. Follow up on pending cultures.
--- NOTE | 2019-06-01 17:18 | PDOC PROGRESS REPORT ---
Subjective Progress Note for:: 06/01/19 Subjective:: This is a 74-year-old female with descending and sigmoid colitis, of uncertain etiology. Her stool cultures are still pending. She does report that her pain is somewhat improved today. She denies any recent hematochezia. No nausea or vomiting. No chest pain, shortness of breath, headache, fevers, chills, orthostasis, dizziness. She does report back pain. Reason For Visit: COLISTIS Physical Exam Vital Signs: Temp Pulse Resp BP Pulse Ox 97.9 F 64 14 113/57 L 96 06/01/19 16:00 06/01/19 16:00 06/01/19 16:00 06/01/19 16:00 06/01/19 16:00 Intake & Output 05/31/19 06/01/19 06/02/19 06:59 06:59 06:59 Intake Total 1490 3220 1190 Output Total 3 Balance 1490 3217 1190 Weight 59.7 kg 59.7 kg Exam: General appearance: PRESENT: no acute distress, cooperative Head exam: PRESENT: atraumatic, normocephalic Eye exam: PRESENT: EOMI, PERRLA. ABSENT: scleral icterus Mouth exam: PRESENT: moist, neck supple Teeth exam: ABSENT: poor dentation Neck exam: ABSENT: meningismus, tenderness, thyromegaly, tracheal deviation Respiratory exam: PRESENT: clear to auscultation guillaume, unlabored. ABSENT: chest wall tenderness, tachypnea, wheezes Cardiovascular exam: PRESENT: RRR Pulses: PRESENT: normal radial pulses Vascular exam: PRESENT: normal capillary refill GI/Abdominal exam: PRESENT: soft, tenderness - mild left lower quad, suprapubic. ABSENT: distended, firm, rebound, rigid Rectal exam: PRESENT: deferred Extremities exam: ABSENT: clubbing Musculoskeletal exam: ABSENT: deformity Neurological exam: PRESENT: alert, awake, oriented to person, oriented to place, oriented to time, oriented to situation, CN II-XII grossly intact Psychiatric exam: ABSENT: agitated, anxious, depressed Skin exam: ABSENT: cyanosis, erythema, jaundice Results Laboratory Results: 06/01/19 04:11 06/01/19 04:11 06/01/19 06/01/19 04:11 04:11 WBC 9.1 RBC 3.71 L Hgb 11.4 L Hct 34.1 L MCV 92 MCH 30.7 MCHC 33.4 RDW 14.8 H Plt Count 335 Seg Neutrophils % 57.2 Lymphocytes % 26.8 Monocytes % 12.5 Eosinophils % 2.6 Basophils % 0.9 Absolute Neutrophils 5.2 Absolute Lymphocytes 2.5 Absolute Monocytes 1.1 Absolute Eosinophils 0.2 Absolute Basophils 0.1 Sodium 140.7 Potassium 4.4 Chloride 106 Carbon Dioxide 29 Anion Gap 6 BUN 7 Creatinine 0.73 Est GFR ( Amer) > 60 Est GFR (Non-Af Amer) > 60 Glucose 96 Calcium 8.7 Total Bilirubin 0.2 AST 18 ALT 23 Alkaline Phosphatase 71 Total Protein 5.2 L Albumin 2.9 L Impressions: Abdomen/Pelvis CT 05/30/19 22:28 IMPRESSION: 1. Acute colitis involving distal transverse colon and much of the descending colon. No obstruction, perforation, or abscess. Assessment & Plan - Diagnosis (1) Colitis with rectal bleeding Is this a current diagnosis for this admission?: Yes - Plan Summary Plan Summary: This is a 74-year-old female with colitis of uncertain etiology. Differential includes infectious colitis versus ischemic colitis. The patient appears stable. I would continue with conservative therapy for now. The patient will require an outpatient colonoscopy 4 to 6 weeks after her symptoms have ceased. I will continue to follow this patient very closely with you.
[2019-06-01] MEDS: DOCUSATE SODIUM 100 MG CAPSULE PO SCH (17:23)
[2019-06-01] MEDS: LEVOFLOXACIN 500 MG/D5W RTU 500 MG/100 ML RTUPB IV SCH (21:27)
[2019-06-02] MEDS: METRONIDAZOLE 500 MG/NS RTU 500 MG/100 ML RTUPB IV SCH ×3 (05:54→17:35)
--- NOTE | 2019-06-02 09:26 | PDOC PROGRESS REPORT ---
Subjective Progress Note for:: 06/02/19 Subjective:: Feels better, minimal pain, tolerated soft mechanical diet. Reason For Visit: COLISTIS Physical Exam Vital Signs: Temp Pulse Resp BP Pulse Ox 98.2 F 65 16 133/64 H 97 06/02/19 07:18 06/02/19 07:18 06/02/19 07:18 06/02/19 07:18 06/02/19 07:18 Intake & Output 06/01/19 06/02/19 06/03/19 06:59 06:59 06:59 Intake Total 3220 4210 Output Total 3 7 Balance 3217 4203 Weight 59.7 kg 59.7 kg General appearance: PRESENT: no acute distress GI/Abdominal exam: PRESENT: other - Soft, nontender no peritoneal signs no rigidity. Results Laboratory Results: 06/01/19 04:11 06/01/19 04:11 06/01/19 19:40 Stool for White Cells NO WBCs SEEN Impressions: Abdomen/Pelvis CT 05/30/19 22:28 IMPRESSION: 1. Acute colitis involving distal transverse colon and much of the descending colon. No obstruction, perforation, or abscess. Assessment & Plan - Diagnosis (1) Colitis with rectal bleeding Is this a current diagnosis for this admission?: Yes Plan: Impression: Hospital day 4 for acute colitis, clinically improved with hydration, intravenous antibiotics; exact etiology remains elusive, infectious versus ischemic, likely the former. Recommendations 1. No indication for surgical intervention; will sign off; reconsult if necessary 2. Patient expresses element of intermittent dysphasia, chronic. She may have element of reflux disease; she denies history of stricture or peptic ulcer disease 3. Suggest patient follow-up with [facility] in 1 to 2 weeks after discharge to arrange for upper and lower endoscopy in approximately 1 month
[2019-06-02] MEDS: PANTOPRAZOLE SODIUM 40 MG VIAL IV SCH ×2 (10:17→21:43)
[2019-06-02] MEDS: DOCUSATE SODIUM 100 MG CAPSULE PO SCH ×2 (10:18→17:35)
[2019-06-02] MEDS: NORMAL SALINE 1000 ML 1,000 ML IV PRN ×2 (10:21→21:50)
[2019-06-02] MEDS ORDERED: ONDANSETRON HCL INJ/PF 4 MG/2 ML SDV IV PRN (18:41)
--- NOTE | 2019-06-02 21:36 | PDOC PROGRESS REPORT ---
Subjective Progress Note for:: 06/02/19 Subjective:: She was admitted over the weekend when she presented with abdominal pain she was diagnosed with colitis with rectal bleed, she was seen by the bedside today she complained of nausea Reason For Visit: COLITIS Physical Exam Vital Signs: Temp Pulse Resp BP Pulse Ox 98.3 F 66 14 130/64 H 100 06/02/19 17:37 06/02/19 17:37 06/02/19 17:37 06/02/19 17:37 06/02/19 17:37 Intake & Output 06/01/19 06/02/19 06/03/19 06:59 06:59 06:59 Intake Total 3220 4210 1902 Output Total 3 7 Balance 3217 4203 1902 Weight 59.7 kg 59.7 kg General appearance: PRESENT: no acute distress Eye exam: PRESENT: PERRLA Respiratory exam: PRESENT: clear to auscultation guillaume Cardiovascular exam: PRESENT: +S1, +S2 GI/Abdominal exam: PRESENT: soft Neurological exam: PRESENT: alert, CN II-XII grossly intact Results Laboratory Results: 06/01/19 04:11 06/01/19 04:11 Impressions: Abdomen/Pelvis CT 05/30/19 22:28 IMPRESSION: 1. Acute colitis involving distal transverse colon and much of the descending colon. No obstruction, perforation, or abscess. Assessment & Plan - Diagnosis (1) Acute hemorrhagic colitis Is this a current diagnosis for this admission?: Yes Plan: Continue present line of management, Give Zofran for nausea
[2019-06-02] MEDS: LEVOFLOXACIN 500 MG/D5W RTU 500 MG/100 ML RTUPB IV SCH (21:43)
[2019-06-03] MEDS: METRONIDAZOLE 500 MG/NS RTU 500 MG/100 ML RTUPB IV SCH ×2 (00:11→05:32)
[2019-06-03] MEDS: NORMAL SALINE 1000 ML 1,000 ML IV PRN (09:17)
[2019-06-03] MEDS: DOCUSATE SODIUM 100 MG CAPSULE PO SCH ×2 (09:17→17:34)
[2019-06-03] MEDS: PANTOPRAZOLE SODIUM 40 MG VIAL IV SCH (09:17)
[2019-06-03 09:43] VITALS: BP 127/59
[2019-06-03] MEDS: METRONIDAZOLE 500 MG TABLET PO SCH ×2 (12:26→17:34)
--- NOTE | 2019-06-03 20:32 | PDOC DISCHARGE SUMMARY ---
General - Admit/Disc Date/PCP Admission Date/Primary Care Provider: 05/31/19 00:47 DUANE ABEL PA-C Discharge Date: 06/03/19 - Discharge Diagnosis (1) Acute hemorrhagic colitis Is this a current diagnosis for this admission?: Yes - Additional Information Resuscitation Status: Full Code Prescriptions: Levofloxacin [Levaquin 500 mg Tablet] 500 mg PO QHS #10 tablet Metronidazole [Flagyl 500 mg Tablet] 500 mg PO Q6 #15 tablet Home Medications: Alprazolam [Xanax] 0.25 mg PO DAILYP PRN 05/31/19 Alprazolam [Xanax] 0.5 mg PO HSP PRN 05/31/19 Aspirin [Ecotrin 81 mg EC Tablet] 81 mg PO DAILY 05/31/19 Omeprazole 20 mg PO ACBRKFST 05/31/19 Tramadol HCl [Ultram 50 mg Tablet] 50 mg PO Q8HP PRN 05/31/19 Levofloxacin [Levaquin 500 mg Tablet] 500 mg PO QHS #10 tablet 06/03/19 Metronidazole [Flagyl 500 mg Tablet] 500 mg PO Q6 #15 tablet 06/03/19 History of Present Illness History of Present Illness: JOSEF LAWRENCE is a 74 year old female, She was admitted on 05/31/2019 when she presented to the emergency room for evaluation of abdominal pain associated with bloody stool, CT scan of the abdomen and pelvis was done, it demonstrated colitis. Hospital Course Hospital Course: Patient was admitted for the management of colitis infectious etiology suspected, treated empirically with IV Levaquin and Flagyl with improvement. Patient will need outpatient colonoscopy 4 to 6 weeks after this episode. She will follow outpatient for further evaluation. I saw her by the bedside today patient is improved she wants to go home.On admission she has severe leukocytosis, white cell count was over 20,000 Physical Exam Vital Signs: Temp Pulse Resp BP Pulse Ox 98.1 F 66 16 127/59 H 96 06/03/19 08:42 06/03/19 08:42 06/03/19 08:42 06/03/19 08:42 06/03/19 08:42 Intake & Output 06/02/19 06/03/19 06/04/19 06:59 06:59 06:59 Intake Total 4210 3102 2700 Output Total 7 Balance 4203 3102 2700 Weight 59.7 kg 62.6 kg General appearance: PRESENT: no acute distress Eye exam: PRESENT: PERRLA Respiratory exam: PRESENT: clear to auscultation guillaume Cardiovascular exam: PRESENT: +S1, +S2 GI/Abdominal exam: PRESENT: soft Neurological exam: PRESENT: alert, CN II-XII grossly intact Results Laboratory Results: 06/01/19 04:11 06/01/19 04:11 Impressions: Abdomen/Pelvis CT 05/30/19 22:28 IMPRESSION: 1. Acute colitis involving distal transverse colon and much of the descending colon. No obstruction, perforation, or abscess. Qualifiers - * PATIENT BEING DISCHARGED WITH ANY OF THE FOLLOWING DIAGNOSIS: No VTE patient discharged on overlapping Therapy?: No Reason(s) for not prescribing Overlap Therapy:: Not indicated Stroke Pt being discharged on Anti-thrombolytic therapy?: No Reason(s) for not prescribing Anti-thrombolytic therapy:: Not indicated Stroke Pt being discharged on Anti-coagulation therapy?: No Reason(s) for not prescribing Anti-coagulation therapy:: Not indicated Stroke Pt being discharged on Statins?: No Reason(s) for not prescribing Statins therapy:: Not indicated ME Pt being discharged on Aspirin therapy?: No Reason(s) for not prescribing Aspirin therapy:: Not indicated ME Pt being discharged on Statins?: No Reason(s) for not prescribing Statin therapy:: Not indicated ME Pt discharged ACEI/ARBS?: No Reason(s) for not prescribing ACEI/ARBS:: Not indicated Acute Heart Failure - Is this a Heart Failure Patient?: No e) For LVEF <35%, discharged on Aldosterone antagonist?: N/A (LVEF > or = 35%)
[2019-06-03] MEDS ORDERED: LEVOFLOXACIN 500 MG TABLET PO SCH (22:00)
== END 2019-06-03 20:19 | disposition home or self-care (01) | DRG 392 ==
LOC: ER 20:32 → EH 05-31 00:47 → 4N 05-31 02:18
PROVIDERS: ADMIT Internal Medicine Geriatric Medicine; ATTEND Internal Medicine
DX: A09 Infectious gastroenteritis and colitis, unspecified (principal); K92.1 Melena; K59.09 Other constipation; E78.5 Hyperlipidemia, unspecified; J45.909 Unspecified asthma, uncomplicated; M19.90 Unspecified osteoarthritis, unspecified site; F32.9 Major depressive disorder, single episode, unspecified; Z90.710 Acquired absence of both cervix and uterus; Z88.2 Allergy status to sulfonamides; Z88.1 Allergy status to other antibiotic agents
CPT/HCPCS: 36415; 74177; 80053; 81001; 83690; 85025; 85610; 85730; 86850; 86900; 86901; 87040; 87045; 87205; 87493; 89055; 99284; J0696; J1956; J2270; J2405; J3490; J7030; J7060; S0164

== ENCOUNTER → 2019-11-13 | Outpatient (CLI) | payer MEDICARE, OTHER ==
--- NOTE | 2019-11-13 16:56 | RADIOLOGY REPORT (SQ) ---
EXAM DESCRIPTION: SHOULDER BILAT 2 OR MORE VIEWS COMPLETED DATE/TIME: 11/13/2019 2:05 pm REASON FOR STUDY: POLYARTHRITIS M13.0 POLYARTHRITIS, UNSPECIFIED COMPARISON: None. NUMBER OF VIEWS: Three views. TECHNIQUE: Internal rotation, external rotation, and Y view images acquired of the right and left sh oulder. LIMITATIONS: None. FINDINGS: MINERALIZATION: Osteopenic BONES: No acute fracture. No worrisome bone lesions. JOINTS: No glenohumeral dislocation. No widening of the acromioclavicular joints VISUALIZED LUNGS AND RIBS: No pneumothorax. No rib fracture. SOFT TISSUES: No radiopaque foreign body. OTHER: No other significant finding. IMPRESSION: No findings to explain history of pain TECHNICAL DOCUMENTATION: JOB ID: [id number] [employer]- All Rights Reserved Reading location - IP/workstation name: [email or web address]
--- NOTE | 2019-11-13 16:56 | RADIOLOGY REPORT (SQ) ---
EXAM DESCRIPTION: C SP 3 VWS OR LESS COMPLETED DATE/TIME: 11/13/2019 2:05 pm REASON FOR STUDY: POLYARTHRITIS M13.0 POLYARTHRITIS, UNSPECIFIED COMPARISON: None. NUMBER OF VIEWS: Two views TECHNIQUE: AP, lateral radiographic images acquired of the cervical spine. LIMITATIONS: None. FINDINGS: MINERALIZATION: Osteopenic ALIGNMENT: Anatomic. VERTEBRAE: Vertebral bodies of normal height. DISCS: No significant disc space narrowing. No large osteophytes. HARDWARE: None in the spine. SOFT TISSUES: No masses or calcifications. Lung apices clear. OTHER: Diffuse bilateral facet arthropathy is present from the C3-4 through the C6-7 levels. IMPRESSION: Diffuse facet arthropathy in the cervical spine. No malalignment. No acute findings TECHNICAL DOCUMENTATION: JOB ID: [id number] All Rights Reserved Reading location - IP/workstation name: [email or web address]
--- NOTE | 2019-11-13 16:57 | RADIOLOGY REPORT (SQ) ---
EXAM DESCRIPTION: LUMBAR SPINE 2 VIEWS COMPLETED DATE/TIME: 11/13/2019 2:05 pm REASON FOR STUDY: POLYARTHRITIS M13.0 POLYARTHRITIS, UNSPECIFIED COMPARISON: CT abdomen and pelvis 05/30/2019 NUMBER OF VIEWS: Two views. TECHNIQUE: AP and lateral radiographic images acquired of the lumbar spine. LIMITATIONS: None. FINDINGS: MINERALIZATION: Osteopenic SEGMENTATION: Normal. No transitional anatomy. ALIGNMENT: Normal. VERTEBRAE: Maintained height. No fracture or worrisome bone lesion. DISCS: Preserved height. No significant osteophytes or end plate irregularity. POSTERIOR ELEMENTS: Pedicles and facets are intact. No pars defect or posterior arch defects. Lower lumbar facet arthropathy from L3 through S1 HARDWARE: None in the spine. PARASPINAL SOFT TISSUES: Normal. PELVIS: SI joints intact OTHER: No other significant finding. IMPRESSION: Lower lumbar facet arthropathy. No acute fracture or malalignment TECHNICAL DOCUMENTATION: JOB ID: [id number] [employer]- All Rights Reserved Reading location - IP/workstation name: [email or web address]
--- NOTE | 2019-11-13 16:58 | RADIOLOGY REPORT (SQ) ---
EXAM DESCRIPTION: T SPINE AP/LAT COMPLETED DATE/TIME: 11/13/2019 2:05 pm REASON FOR STUDY: POLYARTHRITIS M13.0 POLYARTHRITIS, UNSPECIFIED COMPARISON: Cervical and lumbar spine films same date NUMBER OF VIEWS: Two views. TECHNIQUE: AP and lateral radiographic images acquired of the thoracic spine. LIMITATIONS: None. FINDINGS: MINERALIZATION: Osteopenic ALIGNMENT: Normal. No scoliosis. VERTEBRAE: No fracture or bone lesion. Maintained height, normal segmentation. DISCS: No significant loss of height or significant narrowing. No large osteophytes. HARDWARE: None in the spine. MEDIASTINUM AND SOFT TISSUES: Normal heart size and aortic contour. No soft tissue abnormality. VISUALIZED LUNG SMYTH: Clear. OTHER: No other significant finding. IMPRESSION: NO SIGNIFICANT RADIOGRAPHIC FINDING IN THE THORACIC SPINE. TECHNICAL DOCUMENTATION: JOB ID: [id number] [employer]- All Rights Reserved Reading location - IP/workstation name: [email or web address]
== END ==
LOC: OD 13:37
PROVIDERS: ATTEND Internal Medicine
DX: M13.0 Polyarthritis, unspecified (principal); M12.88 Other specific arthropathies, not elsewhere classified, other specified site
CPT/HCPCS: 72040; 72070; 72100

== ENCOUNTER → 2019-12-15 | Outpatient (CLI) | payer MEDICARE, OTHER | LOC: WI 12:58 | PROVIDERS: ATTEND Physician Assistant Medical | DX: N64.4 Mastodynia (principal) | CPT/HCPCS: 77066 ==

== ENCOUNTER → 2019-12-17 | Outpatient (CLI) | payer MEDICARE, OTHER ==
--- NOTE | 2019-12-19 12:41 | WOMENS IMAGING REPORT ---
EXAM DESCRIPTION: BILAT DIAGNOSTIC MAMMO W/CAD; U/S BREAST UNILAT LIMITED COMPLETED DATE/TIME: 12/15/2019 1:44 pm; 12/17/2019 1:40 pm REASON FOR STUDY: BREAST PAIN N64.4; LEFT BREAST PAIN N64.4 N64.4 MASTODYNIA COMPARISON: Multiple since 2008 EXAM PARAMETERS: Standard craniocaudal and mediolateral oblique views of each breast recorded using digital acquisition. Additional left breast 90 mediolateral view. Left whole breast ultrasound was also performed for le ft breast pain. Read with the assistance of CAD: .[facility] - R2 [employer] Version 9.2 LIMITATIONS: None. FINDINGS: RIGHT BREAST MASSES: No suspicious masses. CALCIFICATIONS: No new or suspicious calcifications. ARCHITECTURAL DISTORTION: None. ASYMMETRY: None noted. OTHER: No other significant findings. LEFT BREAST MASSES: No suspicious masses. CALCIFICATIONS: No new or suspicious calcifications. ARCHITECTURAL DISTORTION: None. ASYMMETRY: None noted. OTHER: No other significant finding. Left breast ultrasound: Ultrasound of the left breast was performed. Patient gives a history of diffuse left breast pain. A 3 mm simple cyst is present in the left retroareolar region. A 4 mm cyst is present in left upper outer quadrant at the 1 o'clock position. No solid masses. No dilated ducts. No worrisome acoustic absorption. No other focal findings. IMPRESSION: No mammographic evidence for malignancy right breast No mammographic or sonographic evidence for malignancy left breast. BREAST DENSITY: c. The breasts are heterogeneously dense, which may obscure small masses. BIRAD: ASSESSMENT: No mammographic evidence for malignancy right breast. No mammographic or sonogr aphic evidence for malignancy left breast RECOMMENDATION: RECOMMENDED FOLLOW UP: Please continue yearly bilateral screening mammography in Nov. Please consider bilateral screening tomosynthesis given heterogeneously dense tissue bila terally. SPECIFIC INTERVENTION/IMAGING/CONSULTATION RECOMMENDED:No additional intervention/ imaging/consultati on needed at this time. COMMUNICATION:Patient notified by letter COMMENT: The patient has been notified of the results by letter per MQSA requirements. Additional no tification policies are in place for contacting patient with suspicious or incomplete findings. Quality ID #[id number]: The [employer] recommends an annual screening mammogram for women aged 40 years or over. This facility utilizes a reminder system to ensure that all patients receive reminder letters, and/or direct phone calls for appointments. This includes reminders for routine scr eening mammograms, diagnostic mammograms, or other Breast Imaging Interventions when appropriate. Th is patient will be placed in the appropriate reminder system. TECHNICAL DOCUMENTATION: FINDING NUMBER: (1) ASSESSMENT: (1) JOB ID: [id number] [employer]- All Rights Reserved Reading location - IP/workstation name: [email or web address]
== END ==
LOC: WI 13:57
PROVIDERS: ATTEND Physician Assistant Medical
DX: N64.4 Mastodynia (principal)
CPT/HCPCS: 76642